=== PATIENT | male | born 1980 | race Caucasian/White ===

== ENCOUNTER → 2017-04-03 | Outpatient (CLI) | payer OTHER ==
[~2017-04-03] MED LIST: /LAMO10TA OR; /QUET10TA OR; AMBI10TA OR; AMBI10TA PO; AUGM875T27 PO; BUPRPOW2 SL; COGE1INJ PO; COLA100C2 OR; GABA-282 PO; GEOD60CA OR; NEUR300C OR; OMEP20CA3 PO; PREG100CA OR; SERO200T OR; SUBO8MIS SL; TYLE325T5 PO
[2017-04-03 17:49] LABS: BASO % 0.4 % (0.0-1.0); EOS # 0.1 K/mm3 (0.0-0.50); EOS % 1.8 % (0.0-3.0); LARGE UNSTAINED CELL # 0.1 K/mm3 (0.0-0.4); LARGE UNSTAINED CELL % 1.8 % (0.0-4.0); LYMPH # 1.8 K/mm3 (1.5-4.5); LYMPH % 25.8 % (24.0-44.0); MEAN CORPUSCULAR HEMOGLOBIN 31.2 pg (27.0-33.0); MEAN CORPUSCULAR HGB CONC 33.5 g/dl (32.0-36.5); MEAN CORPUSCULAR VOLUME 93.3 fl (80.0-96.0); MONO # 0.3 K/mm3 (0.0-0.8); MONO % 4.5 % (0.0-5.0); NEUTROPHILS # 4.5 K/mm3 (1.8-7.7); NEUTROPHILS % 65.6 % (36.0-66.0); PLATELET COUNT, AUTOMATED 267 k/mm3 (150-450); RED CELL DISTRIBUTION WIDTH 12.6 % (11.5-14.5); WHITE BLOOD COUNT 6.8 K/mm3 (4.0-10.0)
[2017-04-03 18:25] LABS: ALBUMIN/GLOBULIN RATIO 1.05 (1.00-1.93); ALKALINE PHOSPHATASE 103 U/L (45-117); ALT/SGPT 20 U/L (12-78); ANION GAP 8 MEQ/L (8-16); AST/SGOT 12 U/L (15-37); BILIRUBIN,TOTAL 0.6 MG/DL (0.2-1.0); BLOOD UREA NITROGEN 16 MG/DL (7-18); CALCIUM LEVEL 9.8 MG/DL (8.5-10.1); CARBON DIOXIDE LEVEL 28 MEQ/L (21-32); CHLORIDE LEVEL 106 MEQ/L (98-107); CREATININE FOR GFR 1.18 MG/DL (0.70-1.30); GLOMERULAR FILTRATION RATE > 60.0 (>60); GLUCOSE, FASTING 79 MG/DL (70-105); SODIUM LEVEL 142 MEQ/L (136-145); TOTAL PROTEIN 7.8 GM/DL (6.4-8.2)
[2017-04-03 18:26] LABS: POTASSIUM SERUM 5.5 MEQ/L (3.5-5.1)
--- NOTE | 2017-04-04 00:10 | ECGEPIP ---
Stationary ECG Study [facility] Test Date: 2017-04-03 Pat Name: YASMANI AMBRIZ Department: OP Room: - Gender: M Events Associate: : 1980 Requested By: Vadim Petersen Order Number: [id number] Reading MD: Kana Escalante Measurements Intervals [place] Rate: 71 P: 58 WV: 150 QRS: 61 QRSD: 101 T: 38 QT: 346 QTc: 377 Interpretive Statements SINUS RHYTHM NO PRIOR TRACING Electronically Signed On 04-04-2017 0:10:11 EDT by Kana Escalante
== END ==
LOC: M LAB 16:12
PROVIDERS: ATTEND Family Medicine
DX: F11.20 Opioid dependence, uncomplicated (principal)

== ENCOUNTER → 2017-10-27 | Outpatient (CLI) | payer OTHER ==
[~2017-10-27] MED LIST changes: -AUGM875T27 PO; +AUGM875T28 PO
== END ==
LOC: M LAB 15:30
PROVIDERS: ATTEND Family Medicine
DX: F11.20 Opioid dependence, uncomplicated (principal)

== ENCOUNTER 2017-12-14 15:00 | Emergency (ER) | payer OTHER ==
[2017-12-14] MEDS: ONDANSETRON 4MG/2ML VIAL (J2405) IV (17:31)
[2017-12-14] MEDS: KETOROLAC 30 MG/ML VIAL (J1885) IV (17:31)
[2017-12-14] MEDS: NS 1,000 ML IV (17:31)
[2017-12-14] MEDS: GASTROGRAFIN SOLUTION 30ML PO (17:40)
[2017-12-14 17:44] LABS: BASO # 0.1 10^3/uL (0.0-0.2); BASO % 0.5 % (0.0-1.0); EOS # 0.4 10^3/uL (0.0-0.50); EOS % 3.8 % (0.0-3.0); HEMATOCRIT 47.4 % (42.0-52.0); HEMOGLOBIN 16.2 g/dl (14.0-18.0); IMMATURE GRANULOCYTE % 0.2 % (0-0); LYMPH # 2.6 10^3/uL (1.5-4.5); LYMPH % 26.3 % (24.0-44.0); MEAN CORPUSCULAR HEMOGLOBIN 31.1 pg (27.0-33.0); MEAN CORPUSCULAR HGB CONC 34.2 g/dl (32.0-36.5); MONO # 0.5 10^3/uL (0.0-0.8); NEUTROPHILS # 6.4 10^3/uL (1.8-7.7); NEUTROPHILS % 64.2 % (36.0-66.0); PLATELET COUNT, AUTOMATED 258 10^3/uL (150-450); RED BLOOD COUNT 5.21 10^6/uL (4.30-6.10); RED CELL DISTRIBUTION WIDTH 12.3 % (11.5-14.5); WHITE BLOOD COUNT 9.9 10^3/uL (4.0-10.0)
[2017-12-14 17:47] LABS: KETONE, URINE AUTO RFX TRACE mg/dL (NEGATIVE); LEUKOCYTE ESTERASE UR AUTO RFX NEGATIVE (NEGATIVE); MUCUS, URINE RFX SMALL (NEGATIVE); NITRITE, URINE AUTO RFX NEGATIVE (NEGATIVE); RBC, URINE AUTO RFX 0 /HPF (0-3); SPECIFIC GRAVITY UR AUTO RFX 1.023 (1.002-1.035); SQUAM EPITHELIAL CELL UR AURFX 0 /HPF (0-6); WBC, URINE AUTO RFX 0 /HPF (0-3)
[2017-12-14 18:09] LABS: ALBUMIN 4.3 GM/DL (3.2-5.2); ALBUMIN/GLOBULIN RATIO 1.05 (1.00-1.93); ALKALINE PHOSPHATASE 82 U/L (45-117); ALT/SGPT 19 U/L (12-78); ANION GAP 5 MEQ/L (8-16); AST/SGOT 23 U/L (7-37); BILIRUBIN,DIRECT < 0.1 MG/DL (0.0-0.2); BILIRUBIN,TOTAL 0.6 MG/DL (0.2-1.0); BLOOD UREA NITROGEN 16 MG/DL (7-18); CALCIUM LEVEL 9.4 MG/DL (8.5-10.1); CARBON DIOXIDE LEVEL 26 MEQ/L (21-32); CHLORIDE LEVEL 106 MEQ/L (98-107); CREATININE FOR GFR 1.03 MG/DL (0.70-1.30); GLOMERULAR FILTRATION RATE > 60.0 (>60); GLUCOSE, FASTING 80 MG/DL (70-105); LIPASE 82 U/L (73-393); POTASSIUM SERUM 4.2 MEQ/L (3.5-5.1); SODIUM LEVEL 137 MEQ/L (136-145); TOTAL PROTEIN 8.4 GM/DL (6.4-8.2)
[2017-12-14] MEDS: GASTROGRAFIN SOLUTION 30ML (Q9963) PO (18:10)
[2017-12-14] MEDS ORDERED: ISOVUE-370 76% 100ML VIAL (Q9967) As Ordered (19:08)
== END 2017-12-14 20:27 | disposition home or self-care (01) ==
LOC: M ED 15:00
DX: R10.32 Left lower quadrant pain (principal); R11.2 Nausea with vomiting, unspecified; R19.7 Diarrhea, unspecified; F31.9 Bipolar disorder, unspecified; F43.10 Post-traumatic stress disorder, unspecified; F19.10 Other psychoactive substance abuse, uncomplicated; Z79.899 Other long term (current) drug therapy; F12.20 Cannabis dependence, uncomplicated; F17.210 Nicotine dependence, cigarettes, uncomplicated
CPT/HCPCS: Q9963

== ENCOUNTER 2017-12-20 14:16 | Emergency (ER) | payer OTHER ==
[2017-12-20 16:02] LABS: ESTIMATED AVERAGE GLUCOSE 105 MG/DL (60-110); HEMOGLOBIN A1c 5.3 %
[2017-12-20 16:16] LABS: CHOLESTEROL LEVEL 164 MG/DL (<200); CHOLESTEROL RISK RATIO 3.813 (<5); HDL CHOLESTEROL 43 MG/DL (>40); LDL CHOLESTEROL 79.4 MG/DL (<100); NON-HDL-C 121 MG/DL; TRIGLYCERIDES LEVEL 208 MG/DL (<150)
[2017-12-21 11:17] LABS: VITAMIN B12 LEVEL 385 PG/ML (247-911)
[2017-12-24 00:06] LABS: VITAMIN D 1,25 DIHYDROXY 33.7 pg/mL (19.9-79.3)
== END 2017-12-20 15:58 | disposition home or self-care (01) ==
LOC: M ED 14:16
DX: R21 Rash and other nonspecific skin eruption (principal); B19.20 Unspecified viral hepatitis C without hepatic coma; K21.9 Gastro-esophageal reflux disease without esophagitis; F99 Mental disorder, not otherwise specified; F17.200 Nicotine dependence, unspecified, uncomplicated; Z79.899 Other long term (current) drug therapy
CPT/HCPCS: 84443

== ENCOUNTER → 2017-12-25 | Outpatient (REF) | payer OTHER ==
[2017-12-25 12:40] LABS: BASO # 0.1 10^3/uL (0.0-0.2); BASO % 0.7 % (0.0-1.0); EOS # 0.4 10^3/uL (0.0-0.50); EOS % 5.8 % (0.0-3.0); HEMATOCRIT 41.7 % (42.0-52.0); HEMOGLOBIN 13.9 g/dl (14.0-18.0); IMMATURE GRANULOCYTE % 0.3 % (0-0); LYMPH # 1.8 10^3/uL (1.5-4.5); LYMPH % 26.8 % (24.0-44.0); MEAN CORPUSCULAR HEMOGLOBIN 30.2 pg (27.0-33.0); MEAN CORPUSCULAR HGB CONC 33.3 g/dl (32.0-36.5); MEAN CORPUSCULAR VOLUME 90.5 fl (80.0-96.0); MONO # 0.4 10^3/uL (0.0-0.8); MONO % 6.4 % (0.0-5.0); PLATELET COUNT, AUTOMATED 271 10^3/uL (150-450); RED BLOOD COUNT 4.61 10^6/uL (4.30-6.10); RED CELL DISTRIBUTION WIDTH 12.4 % (11.5-14.5); WHITE BLOOD COUNT 6.7 10^3/uL (4.0-10.0)
[2017-12-25 13:12] LABS: HEPATITIS B SURFACE ANTIBODY NEGATIVE (POSITIVE)
[2017-12-25 13:18] LABS: ALBUMIN 3.6 GM/DL (3.2-5.2); ALBUMIN/GLOBULIN RATIO 1.03 (1.00-1.93); ALKALINE PHOSPHATASE 93 U/L (45-117); ALT/SGPT 19 U/L (12-78); ANION GAP 6 MEQ/L (8-16); AST/SGOT 14 U/L (7-37); BILIRUBIN,TOTAL 0.4 MG/DL (0.2-1.0); BLOOD UREA NITROGEN 14 MG/DL (7-18); CALCIUM LEVEL 9.3 MG/DL (8.5-10.1); CARBON DIOXIDE LEVEL 30 MEQ/L (21-32); CHLORIDE LEVEL 104 MEQ/L (98-107); CREATININE FOR GFR 0.89 MG/DL (0.70-1.30); GLOMERULAR FILTRATION RATE > 60.0 (>60); GLUCOSE, FASTING 85 MG/DL (70-100); POTASSIUM SERUM 4.7 MEQ/L (3.5-5.1); SODIUM LEVEL 140 MEQ/L (136-145); TOTAL PROTEIN 7.1 GM/DL (6.4-8.2)
[2017-12-25 13:23] LABS: HEPATITIS B SURFACE ANTIGEN NEGATIVE (NEGATIVE)
[2017-12-25 14:10] LABS: HEPATITIS C VIRUS ABY INDEX > 11.0 INDEX (<0.8)
[2017-12-28 08:06] LABS: HCV RNA NAA QUALITATIVE Negative (Negative)
[2017-12-29 08:06] LABS: ALPHA 2-MACROGLOBULIN 207 mg/dL (110-276); ALT 14 IU/L (0-55); APOLIPOPROTEIN A-1 128 mg/dL (101-178); FIBROSIS SCORE 0.08 (0.00-0.21); GGT 14 IU/L (0-65); HAPTOGLOBIN 139 mg/dL (34-200); HEPATITIS A IgG TOTAL Negative (Negative); NECROINFLAM SCORE 0.03 (0.00-0.17); NECROINFLAMM GRADE A0-No activity (.); TISSUE TRANSGLUTAMINASE IgA <2 U/mL (0-3); TOTAL BILIRUBIN 0.2 mg/dL (0.0-1.2)
[2017-12-30 00:06] LABS: HEPATITIS C QUANTITATION HCV Not Detected IU/mL (.)
== END ==
LOC: M SFHCPLAZ 10:06
DX: B19.20 Unspecified viral hepatitis C without hepatic coma (principal); K21.9 Gastro-esophageal reflux disease without esophagitis; R19.7 Diarrhea, unspecified; R94.6 Abnormal results of thyroid function studies
CPT/HCPCS: 83010

== ENCOUNTER → 2017-12-30 | Outpatient (REF) | payer OTHER ==
[2018-01-02 00:08] LABS: H PYLORI STOOL ANTIGEN Negative (Negative)
== END ==
LOC: M SFHCPLAZ 15:37
DX: K21.9 Gastro-esophageal reflux disease without esophagitis (principal); R19.7 Diarrhea, unspecified
CPT/HCPCS: 87338

== ENCOUNTER → 2018-02-01 | Outpatient (CLI) | payer OTHER | LOC: M LAB 11:01 | DX: M25.511 Pain in right shoulder (principal) | CPT/HCPCS: 73030 ==

== ENCOUNTER 2018-02-14 14:03 | Emergency (ER) | payer OTHER | END 2018-02-14 16:47 | disposition home or self-care (01) | LOC: M ED 14:03 | DX: S82.831A Other fracture of upper and lower end of right fibula, initial encounter for closed fracture (principal); S82.54XA Nondisplaced fracture of medial malleolus of right tibia, initial encounter for closed fracture; X50.1XXA Overexertion from prolonged static or awkward postures, initial encounter; Y92.9 Unspecified place or not applicable; Y93.9 Activity, unspecified; F17.200 Nicotine dependence, unspecified, uncomplicated; Z79.899 Other long term (current) drug therapy | CPT/HCPCS: 73610 ==

== ENCOUNTER 2018-02-26 15:41 | Day surgery (SDC) | payer OTHER ==
[2018-02-26] MEDS ORDERED: dexameTHASONE 10 MG/1 ML VIAL PRES.FREE (J1100) (15:42)
[2018-02-26] MEDS ORDERED: ROPIvacaine 0.5% 30 ML INJECTION (J2795 PER 1MG) (15:42)
[2018-02-26] MEDS: LR 1,000 ML IV ×3 (16:28→22:52)
[2018-02-26] MEDS ORDERED: MIDAZOLAM INJ 2 MG/2 ML VIAL (J2250) As Ordered (19:16)
[2018-02-26] MEDS ORDERED: fentaNYL 100 MCG/2 ML INJECTION (J3010) As Ordered (19:16)
[2018-02-26] MEDS: fentaNYL 100 MCG/2 ML INJECTION (J3010) IV ×2 (19:37→19:50)
[2018-02-26] MEDS: MIDAZOLAM INJ 2 MG/2 ML VIAL (J2250) IV ×2 (19:38→19:50)
[2018-02-26] MEDS ORDERED: LIDOCAINE 2% INJ 100 MG/5 ML SDV (FOR ANES.) As Ordered (19:49)
[2018-02-26] MEDS ORDERED: ROCURONIUM BROMIDE 50 MG/5 ML VIAL As Ordered (19:49)
[2018-02-26] MEDS ORDERED: PROPOFOL 200 MG/20 ML VIAL As Ordered (19:49)
[2018-02-26] MEDS ORDERED: dexameTHASONE 4 MG/ML 1ML VIAL (J1100) As Ordered (20:07)
[2018-02-26] MEDS ORDERED: METOCLOPRAMIDE INJ 10MG/2ML VIAL (J2765) As Ordered (20:29)
[2018-02-26] MEDS ORDERED: ONDANSETRON 4MG/2ML VIAL (J2405) As Ordered (20:32)
[2018-02-26] MEDS ORDERED: GLYCOPYRROLATE INJ 0.2 MG/ML 2 ML VIAL As Ordered (20:32)
[2018-02-26] MEDS ORDERED: ePHEDrine SULFATE 25 MG/5 ML(5MG/ML) SYRINGE As Ordered (20:33)
[2018-02-26] MEDS ORDERED: PHENYLephrine HCL 500 MCG/5 ML (100MCG/ML) SYRINGE (J2370) As Ordered (20:45)
[2018-02-26] MEDS: PERCOCET 5MG/325MG TAB PO (21:55)
[2018-02-26] MEDS ORDERED: traMADol 50 MG TAB PO (22:00)
[2018-02-26] MEDS ORDERED: FLEET ENEMA PR (22:00)
[2018-02-26] MEDS ORDERED: ONDANSETRON 4MG/2ML VIAL (J2405) IV (22:00)
[2018-02-26] MEDS ORDERED: fentaNYL 100 MCG/2 ML INJECTION (J3010) IV (22:00)
[2018-02-26] MEDS: ACETAMINOPHEN 500 MG TAB PO (22:52)
[2018-02-27] MEDS: ACETAMINOPHEN 500 MG TAB PO (05:06)
[2018-02-27] MEDS: VITAMIN D (CHOLECALCIFEROL) 400 INTERNATIONAL UNITS TAB PO (08:52)
[2018-02-27] MEDS: ASPIRIN 81 MG CHEW TABLET PO (08:52)
[2018-02-27] MEDS: METHADONE 10 MG TAB (S0109) PO (08:53)
== END 2018-02-27 11:40 | disposition home or self-care (01) ==
LOC: M SDC 15:41 → M MS5PR 22:35
DX: S93.431A Sprain of tibiofibular ligament of right ankle, initial encounter (principal); X58.XXXA Exposure to other specified factors, initial encounter; Y93.89 Activity, other specified; Y92.89 Other specified places as the place of occurrence of the external cause; Y99.8 Other external cause status; Z91.19 Patient's noncompliance with other medical treatment and regimen; I10 Essential (primary) hypertension; E78.1 Pure hyperglyceridemia; K52.9 Noninfective gastroenteritis and colitis, unspecified; R13.10 Dysphagia, unspecified; K62.5 Hemorrhage of anus and rectum; K59.00 Constipation, unspecified; K21.9 Gastro-esophageal reflux disease without esophagitis; R11.10 Vomiting, unspecified; B19.20 Unspecified viral hepatitis C without hepatic coma; F41.9 Anxiety disorder, unspecified; F31.9 Bipolar disorder, unspecified; F12.90 Cannabis use, unspecified, uncomplicated; Z72.0 Tobacco use; Z79.899 Other long term (current) drug therapy; Z79.891 Long term (current) use of opiate analgesic; Z87.828 Personal history of other (healed) physical injury and trauma; Z86.59 Personal history of other mental and behavioral disorders
CPT/HCPCS: 27829

== ENCOUNTER → 2018-04-07 | Outpatient (CLI) | payer OTHER ==
[2018-04-07 15:30] LABS: HEMATOCRIT 44.2 % (42.0-52.0); HEMOGLOBIN 14.8 g/dl (13.5-17.5); MEAN CORPUSCULAR HEMOGLOBIN 30.6 pg (27.0-33.0); MEAN CORPUSCULAR HGB CONC 33.5 g/dl (32.0-36.5); MEAN CORPUSCULAR VOLUME 91.3 fl (80.0-96.0); PLATELET COUNT, AUTOMATED 296 10^3/uL (150-450); RED BLOOD COUNT 4.84 10^6/uL (4.30-6.10); RED CELL DISTRIBUTION WIDTH 12.9 % (11.5-14.5); WHITE BLOOD COUNT 8.1 10^3/uL (4.0-10.0)
[2018-04-07 15:49] LABS: ALBUMIN 4.4 GM/DL (3.2-5.2); ALBUMIN/GLOBULIN RATIO 1.19 (1.00-1.93); ALKALINE PHOSPHATASE 89 U/L (45-117); ALT/SGPT 20 U/L (12-78); ANION GAP 4 MEQ/L (8-16); AST/SGOT 13 U/L (7-37); BILIRUBIN,TOTAL 0.7 MG/DL (0.2-1.0); BLOOD UREA NITROGEN 23 MG/DL (7-18); CALCIUM LEVEL 9.7 MG/DL (8.5-10.1); CARBON DIOXIDE LEVEL 29 MEQ/L (21-32); CHLORIDE LEVEL 108 MEQ/L (98-107); CREATININE FOR GFR 1.08 MG/DL (0.70-1.30); GLOMERULAR FILTRATION RATE > 60.0 (>60); GLUCOSE, FASTING 82 MG/DL (70-100); POTASSIUM SERUM 4.8 MEQ/L (3.5-5.1); SODIUM LEVEL 141 MEQ/L (136-145); TOTAL PROTEIN 8.1 GM/DL (6.4-8.2)
[2018-04-07 16:58] LABS: CHLAMYDIA DNA AMPLIFICATION NEGATIVE (NEGATIVE); GC DNA AMPLIFICATION NEGATIVE (NEGATIVE)
[2018-04-09 10:06] LABS: HEPATITIS B SURFACE ANTIGEN NEGATIVE (NEGATIVE)
[2018-04-09 10:26] LABS: HIV 1&2 SCREEN CENTAUR NEGATIVE (NEGATIVE)
[2018-04-09 10:34] LABS: HEPATITIS C VIRUS ABY INDEX > 11.0 INDEX (<0.8)
[2018-04-13 00:07] LABS: HCV RNA NAA QUALITATIVE Negative (Negative)
== END ==
LOC: M LAB 15:02
DX: F11.20 Opioid dependence, uncomplicated (principal)
CPT/HCPCS: 80053

== ENCOUNTER → 2018-04-09 | Outpatient (CLI) | payer OTHER | LOC: M LAB 12:55 | DX: R94.6 Abnormal results of thyroid function studies (principal) | CPT/HCPCS: 84443 ==

== ENCOUNTER → 2018-04-09 | Outpatient (CLI) | payer OTHER | LOC: M EKG 13:05 | DX: F11.20 Opioid dependence, uncomplicated (principal) | CPT/HCPCS: 93005 ==

== ENCOUNTER 2018-04-23 07:09 | Day surgery (SDC) | payer OTHER ==
[~2018-04-23 07:09] MED LIST changes: -/LAMO10TA OR; -/QUET10TA OR; -AMBI10TA OR; -AMBI10TA PO; -AUGM875T28 PO; -BUPRPOW2 SL; -COGE1INJ PO; -COLA100C2 OR; -GABA-282 PO; -GEOD60CA OR; -NEUR300C OR; -OMEP20CA3 PO; -PREG100CA OR; +PROPOFOL 500 MG/50 ML VIAL As Ordered; -SERO200T OR; -SUBO8MIS SL; -TYLE325T5 PO; +fentaNYL 100 MCG/2 ML INJECTION (J3010) As Ordered
[2018-04-23] MEDS ORDERED: LIDOCAINE 2% INJ 100 MG/5 ML SDV (FOR ANES.) As Ordered (07:10)
[2018-04-23] MEDS ORDERED: CETACAINE SPRAY 5GM As Ordered (07:36)
[2018-04-23] MEDS: NS 1,000 ML IV (07:45)
== END 2018-04-23 09:34 | disposition home or self-care (01) ==
LOC: M OPP 07:09
DX: K64.8 Other hemorrhoids (principal); K52.9 Noninfective gastroenteritis and colitis, unspecified; K57.30 Diverticulosis of large intestine without perforation or abscess without bleeding; K63.5 Polyp of colon; K21.0 Gastro-esophageal reflux disease with esophagitis; K29.70 Gastritis, unspecified, without bleeding; I10 Essential (primary) hypertension; R79.89 Other specified abnormal findings of blood chemistry; F31.9 Bipolar disorder, unspecified; F41.9 Anxiety disorder, unspecified; B17.10 Acute hepatitis C without hepatic coma; G47.00 Insomnia, unspecified; Z79.82 Long term (current) use of aspirin; Z79.899 Other long term (current) drug therapy; Z86.59 Personal history of other mental and behavioral disorders; Z96.9 Presence of functional implant, unspecified; Z82.49 Family history of ischemic heart disease and other diseases of the circulatory system; Z86.79 Personal history of other diseases of the circulatory system; Z80.9 Family history of malignant neoplasm, unspecified
CPT/HCPCS: 45380

== ENCOUNTER → 2018-04-27 | Outpatient (REF) | LOC: M SMT 12:01 | DX: M54.5 Low back pain (principal) ==

== ENCOUNTER → 2018-05-17 | Outpatient (REF) | payer OTHER | LOC: M SFHCPLAZ 16:44 | DX: E03.9 Hypothyroidism, unspecified (principal) ==

== ENCOUNTER → 2018-06-09 | Outpatient (REF) | payer OTHER | LOC: M SFHCPLAZ 15:17 | DX: L73.8 Other specified follicular disorders (principal) | CPT/HCPCS: 87186 ==

== ENCOUNTER → 2019-05-10 | Outpatient (REF) | payer OTHER ==
[~2019-05-10] MED LIST changes: +AMBI10TA OR; +AMBI10TA PO; +ASPI1CHW2 PO; +AUGM875T28 PO; +BUPRPOW2 SL; +COGE1INJ PO; +COLA100C2 OR; +COLA100C5 PO; +GABA-843 PO; +GEOD60CA OR; +HYDR1OIN23 EX; +IBUP80TA PO; +LAMI1TAB7 OR; +METH40TA PO; +NEUR300C OR; +NEUR300C PO; +OMEP20CA3 PO; +OMEP20TA PO; +PANT40TA3 PO; +PREG100CA OR; -PROPOFOL 500 MG/50 ML VIAL As Ordered; +SENN8.6C PO; +SERO1TAB OR; +SERO200T OR; +SERO50TA PO; +SUBO8MIS SL; +TRAM50TA2 PO; +TYLE325T5 PO; +TYLE500T78 PO; +WELLTAB38 PO; -fentaNYL 100 MCG/2 ML INJECTION (J3010) As Ordered
[2019-05-10 18:23] LABS: BASO % 0.4 % (0.0-1.0); EOS # 0.2 10^3/uL (0.0-0.50); EOS % 3.6 % (0.0-3.0); HEMATOCRIT 45.7 % (42.0-52.0); HEMOGLOBIN 14.5 g/dl (13.5-17.5); LYMPH # 1.5 10^3/uL (1.5-4.5); LYMPH % 33.2 % (24.0-44.0); MEAN CORPUSCULAR HEMOGLOBIN 27.3 pg (27.0-33.0); MEAN CORPUSCULAR HGB CONC 31.7 g/dl (32.0-36.5); MEAN CORPUSCULAR VOLUME 85.9 fl (80.0-96.0); MONO # 0.3 10^3/uL (0.0-0.8); MONO % 7.1 % (0.0-5.0); NEUTROPHILS # 2.5 10^3/uL (1.8-7.7); NEUTROPHILS % 55.5 % (36.0-66.0); PLATELET COUNT, AUTOMATED 260 10^3/uL (150-450); RED BLOOD COUNT 5.32 10^6/uL (4.30-6.10); WHITE BLOOD COUNT 4.5 10^3/uL (4.0-10.0)
[2019-05-10 18:35] LABS: ALBUMIN 3.7 GM/DL (3.2-5.2); ALT/SGPT 24 U/L (12-78); BILIRUBIN,TOTAL 0.6 MG/DL (0.2-1.0); BLOOD UREA NITROGEN 15 MG/DL (7-18); CALCIUM LEVEL 9.8 MG/DL (8.5-10.1); CARBON DIOXIDE LEVEL 26 MEQ/L (21-32); CHLORIDE LEVEL 107 MEQ/L (98-107); CHOLESTEROL LEVEL 188 MG/DL (<200); CHOLESTEROL RISK RATIO 5.371 (<5); CREATININE FOR GFR 0.76 MG/DL (0.70-1.30); FREE T4 0.77 NG/DL (0.76-1.46); GLOMERULAR FILTRATION RATE > 60.0 (>60); GLUCOSE, FASTING 95 MG/DL (70-100); HDL CHOLESTEROL 35 MG/DL (>40); LDL CHOLESTEROL 101 MG/DL (<100); NON-HDL-C 153 MG/DL; POTASSIUM SERUM 4.2 MEQ/L (3.5-5.1); SODIUM LEVEL 140 MEQ/L (136-145); TOTAL PROTEIN 7.2 GM/DL (6.4-8.2); TRIGLYCERIDES LEVEL 259 MG/DL (<150)
[2019-05-10 18:36] LABS: TOTAL 25(OH) VITAMIN D 20.4 NG/ML (30.0-100.0)
[2019-05-10 19:00] LABS: HEMOGLOBIN A1c 5.2 %
[2019-05-13 00:08] LABS: Lyme Disease IgG/IgM Antibodie <0.91 ISR (0.00-0.90); Lyme Disease IgM Ab Quantitati <0.80 index (0.00-0.79)
== END ==
LOC: M LAB REF 16:55
PROVIDERS: ATTEND Family Medicine
DX: Z13.228 Encounter for screening for other metabolic disorders (principal)

== ENCOUNTER → 2019-06-14 | Outpatient (REF) ==
[~2019-06-14] MED LIST changes: -OMEP20CA3 PO; +OMEP20CA4 PO
--- NOTE | 2019-06-14 12:33 | REP ---
Right tibia-fibula four views: There are no comparisons. There is internal fixation of the tibia with an intramedullary ignacio and cortical compression plates there is a cortical compression plate of the distal fibula. The fractures are in hardware are in satisfactory positions alignment. Old screw tracts are identified in the cortex of the mid tibia. There is a nondisplaced fracture of the proximal fibular shaft. There are no lytic, blastic or destructive skeletal changes. There is a fracture at the midshaft of the tibia is healed with fibrous union. Electronically Signed by Vadim Fitch MD 06/14/2019 12:24 P
== END ==
LOC: M SMT 11:01
PROVIDERS: ATTEND Internal Medicine
DX: S82.401A Unspecified fracture of shaft of right fibula, initial encounter for closed fracture (principal); Z87.39 Personal history of other diseases of the musculoskeletal system and connective tissue

== ENCOUNTER → 2019-10-26 | Outpatient (CLI) | payer OTHER ==
[~2019-10-26] MED LIST changes: +OMEP-358 PO; -OMEP20TA PO
[2019-10-26 10:40] LABS: FREE T4 1.16 NG/DL (0.76-1.46); THYROID STIMULATING HORMONE 2.38 uIU/ML (0.358-3.740)
[2019-10-26 10:41] LABS: CORTISOL AM 14.6 UG/DL (4.3-22.4); FOLLICLE STIMULATING HORMONE 3.7 mIU/mL (1.4-18.1); LUTEINIZING HORMONE 2.6 mIU/mL (1.5-9.3)
[2019-10-29 00:07] LABS: TESTOSTERONE FREE (DIRECT) 9.3 pg/mL (8.7-25.1)
== END ==
LOC: M LAB 08:54
PROVIDERS: ATTEND Physical Medicine & Rehabilitation
DX: S06.6X9S Traumatic subarachnoid hemorrhage with loss of consciousness of unspecified duration, sequela (principal); X58.XXXA Exposure to other specified factors, initial encounter

== ENCOUNTER 2019-11-22 13:30 | Emergency (ER) | payer OTHER ==
[~2019-11-22] VITALS: Ht 170.2 cm; Wt 93.2 kg
[~2019-11-22 13:30] MED LIST changes: +OMEP-172 PO; -OMEP20CA4 PO
[2019-11-22] MEDS ORDERED: TRAZ-252 (13:58)
[2019-11-22] MEDS ORDERED: AMAN100T (13:58)
[2019-11-22] MEDS ORDERED: LISI40TA (13:58)
[2019-11-22] MEDS ORDERED: BUPR1TAB52 (13:58)
[2019-11-22] MEDS ORDERED: ACET1TAB55 (13:58)
[2019-11-22] MEDS ORDERED: PROP10TA56 (13:58)
[2019-11-22] MEDS ORDERED: SENN-83 (13:58)
--- NOTE | 2019-11-22 14:05 | REP ---
Clinical: New onset seizures. Comparison: 02/16/2006. Findings: Evidence for prior right frontoparietal craniotomy with underlying elements of encephalomalacia involving the right parietotemporal region. Focal area of encephalomalacia also noted in the left frontal lobe. Findings are consistent with the given history of prior surgery for subdural hemorrhage. No acute intracranial hemorrhage or mass/mass effect. No acute extra-axial fluid collection. Sinuses and mastoid air cells are clear. Impression: Chronic and postsurgical changes. No evidence for acute intracranial pathology. Electronically Signed by Boby Schmitz MD 11/22/2019 01:56 P
[2019-11-22 15:14] LABS: BLOOD UREA NITROGEN 13 MG/DL (7-18); CALCIUM LEVEL 10.1 MG/DL (8.5-10.1); CARBON DIOXIDE LEVEL 30 MEQ/L (21-32); CHLORIDE LEVEL 104 MEQ/L (98-107); CREATININE FOR GFR 1.18 MG/DL (0.70-1.30); GLOMERULAR FILTRATION RATE > 60.0 (>60); GLUCOSE, FASTING 81 MG/DL (70-100); POTASSIUM SERUM 3.9 MEQ/L (3.5-5.1); SODIUM LEVEL 141 MEQ/L (136-145)
[2019-11-22 15:15] LABS: AMPHETAMINES LEVEL URINE NEGATIVE (NEGATIVE); BARBITURATES URINE NEGATIVE (NEGATIVE); BENZODIAZEPINES URINE NEGATIVE (NEGATIVE); CANNABINOIDS URINE POSITIVE (NEGATIVE); COCAINE METABOLITE URINE POSITIVE (NEGATIVE); METHADONE URINE NEGATIVE (NEGATIVE); OPIATES URINE NEGATIVE (NEGATIVE); PHENCYCLIDINE URINE NEGATIVE (NEGATIVE)
[2019-11-22 15:18] LABS: BASO % 0.5 % (0.0-1.0); EOS # 0.2 10^3/uL (0.0-0.5); HEMATOCRIT 53.4 % (42.0-52.0); HEMOGLOBIN 17.4 g/dl (13.5-17.5); LYMPH # 1.1 10^3/uL (1.5-5.0); LYMPH % 17.4 % (24.0-44.0); MEAN CORPUSCULAR HEMOGLOBIN 29.8 pg (27.0-33.0); MEAN CORPUSCULAR HGB CONC 32.6 g/dl (32.0-36.5); MEAN CORPUSCULAR VOLUME 91.6 fl (80.0-96.0); MONO # 0.5 10^3/uL (0.0-0.8); NEUTROPHILS # 4.7 10^3/uL (1.5-8.5); NEUTROPHILS % 71.8 % (36.0-66.0); PLATELET COUNT, AUTOMATED 263 10^3/uL (150-450); RED BLOOD COUNT 5.83 10^6/uL (4.30-6.10); WHITE BLOOD COUNT 6.6 10^3/uL (4.0-10.0)
[2019-11-22] MEDS ORDERED: KEPP1TAB2 PO (15:53)
[2019-11-22] MEDS ORDERED: levETIRAcetam INJection 1,000 MG in D5W 100 ML IV ONE (16:00)
[2019-11-22 16:46] VITALS: BP 151/90
== END 2019-11-22 17:06 | disposition home or self-care (01) ==
LOC: EDBD 13:30 → M ED 13:30
DX: G40.89 Other seizures (principal); F12.90 Cannabis use, unspecified, uncomplicated; F14.10 Cocaine abuse, uncomplicated; Z87.820 Personal history of traumatic brain injury; Z79.899 Other long term (current) drug therapy
CPT/HCPCS: 70450; 80048; 80307; 85025; 96365; 99284; J1953

== ENCOUNTER 2019-11-28 13:15 | Outpatient (RCR) | payer MEDICAID, OTHER ==
[~2019-11-28 13:15] MED LIST changes: +ACET1TAB55; +AMAN100T; +BUPR1TAB52; +KEPP1TAB2 PO; +LISI40TA; +PROP10TA56; +SENN-83; +TRAZ-252
== END 2019-11-29 | disposition home or self-care (01) ==
LOC: M PT 13:15
PROVIDERS: ATTEND Neurological Surgery
DX: Z98.890 Other specified postprocedural states (principal); S06.6X9D Traumatic subarachnoid hemorrhage with loss of consciousness of unspecified duration, subsequent encounter; S06.5X Traumatic subdural hemorrhage; X58.XXXD Exposure to other specified factors, subsequent encounter
CPT/HCPCS: 96125; 97110; 97112; 97116; 97161; 97165; G0515

== ENCOUNTER → 2019-12-30 | Outpatient (RCR) | payer OTHER ==
[~2019-12-30] MED LIST changes: -OMEP-172 PO; +OMEP1CAP73 PO
== END ==
LOC: M ST 12-20 10:31 → M PT 12-20 11:15 → M ST 12-22 10:09 → M PT 12-23 09:45 → M ST 12-28 11:12 → M PT 11:41
PROVIDERS: ATTEND Neurological Surgery
DX: Z98.890 Other specified postprocedural states (principal); S06.6X9D Traumatic subarachnoid hemorrhage with loss of consciousness of unspecified duration, subsequent encounter; S06.5X Traumatic subdural hemorrhage; X58.XXXD Exposure to other specified factors, subsequent encounter

== ENCOUNTER 2020-01-27 10:30 | Outpatient (RCR) | payer OTHER ==
[~2020-01-27 10:30] MED LIST changes: -ACET1TAB55; +ACET1TAB55 PO; -AMAN100T; +AMAN100T PO; -BUPR1TAB52; +BUPR1TAB52 PO; -LISI40TA; +LISI40TA PO; -PROP10TA56; +PROP10TA56 PO; -SENN-83; +SENN-83 PO; -TRAZ-252; +TRAZ-252 PO
== END 2020-01-28 | disposition home or self-care (01) ==
LOC: M PT 10:30
PROVIDERS: ATTEND Neurological Surgery
DX: Z98.890 Other specified postprocedural states (principal); S06.6X9D Traumatic subarachnoid hemorrhage with loss of consciousness of unspecified duration, subsequent encounter; S06.5X Traumatic subdural hemorrhage; X58.XXXD Exposure to other specified factors, subsequent encounter

== ENCOUNTER 2020-02-04 17:31 | Emergency (ER) | payer OTHER ==
[~2020-02-04] VITALS: Ht 170.2 cm; Wt 93.2 kg
[~2020-02-04 17:31] MED LIST changes: +ACET1TAB55; -ACET1TAB55 PO; +AMAN100T; -AMAN100T PO; +BUPR1TAB52; -BUPR1TAB52 PO; +LISI40TA; -LISI40TA PO; +PROP10TA56; -PROP10TA56 PO; +SENN-83; -SENN-83 PO; +TRAZ-252; -TRAZ-252 PO
[2020-02-04] MEDS ORDERED: levETIRAcetam INJection 1,000 MG in D5W 100 ML IV ONE (18:45)
[2020-02-04 20:08] LABS: AMPHETAMINES LEVEL URINE NEGATIVE (NEGATIVE); BARBITURATES URINE NEGATIVE (NEGATIVE); BENZODIAZEPINES URINE NEGATIVE (NEGATIVE); CANNABINOIDS URINE POSITIVE (NEGATIVE); COCAINE METABOLITE URINE NEGATIVE (NEGATIVE); METHADONE URINE NEGATIVE (NEGATIVE); OPIATES URINE NEGATIVE (NEGATIVE); PHENCYCLIDINE URINE NEGATIVE (NEGATIVE)
[2020-02-04 20:17] LABS: HEMATOCRIT 45.2 % (42.0-52.0); HEMOGLOBIN 15.2 g/dl (13.5-17.5); MEAN CORPUSCULAR HEMOGLOBIN 30.5 pg (27.0-33.0); MEAN CORPUSCULAR HGB CONC 33.6 g/dl (32.0-36.5); MEAN CORPUSCULAR VOLUME 90.6 fl (80.0-96.0); PLATELET COUNT, AUTOMATED 277 10^3/uL (150-450); RED BLOOD COUNT 4.99 10^6/uL (4.30-6.10); WHITE BLOOD COUNT 9.3 10^3/uL (4.0-10.0)
[2020-02-04 20:51] LABS: BLOOD UREA NITROGEN 15 MG/DL (7-18); CALCIUM LEVEL 9.3 MG/DL (8.5-10.1); CARBON DIOXIDE LEVEL 25 MEQ/L (21-32); CHLORIDE LEVEL 107 MEQ/L (98-107); GLOMERULAR FILTRATION RATE > 60.0 (>60); GLUCOSE, FASTING 92 MG/DL (70-100); POTASSIUM SERUM 3.9 MEQ/L (3.5-5.1); SODIUM LEVEL 139 MEQ/L (136-145)
[2020-02-04] MEDS ORDERED: KEPP1TAB2 PO (21:15)
[2020-02-04 21:41] VITALS: BP 132/98
== END 2020-02-04 21:42 | disposition home or self-care (01) ==
LOC: EDBD 17:31 → M ED 17:31 → EDSEX 17:31 → M ED 21:42
DX: R56.9 Unspecified convulsions (principal); Z87.820 Personal history of traumatic brain injury; I10 Essential (primary) hypertension; K21.9 Gastro-esophageal reflux disease without esophagitis; Z79.899 Other long term (current) drug therapy
CPT/HCPCS: 80048; 80307; 85027; 96365; 96366; 99284; J1953

== ENCOUNTER 2020-02-08 11:00 | Outpatient (RCR) | payer OTHER ==
[~2020-02-08 11:00] MED LIST changes: -ACET1TAB55; +ACET1TAB55 PO; -AMAN100T; +AMAN100T PO; -BUPR1TAB52; +BUPR1TAB52 PO; -LISI40TA; +LISI40TA PO; -PROP10TA56; +PROP10TA56 PO; -SENN-83; +SENN-83 PO; -TRAZ-252; +TRAZ-252 PO
[2020-02-09] MEDS ORDERED: LEVE750T5 PO (16:04)
[2020-02-14] MEDS ORDERED: BACI50OI TOP (10:22)
[2020-02-14] MEDS ORDERED: DOXY100T PO (10:22)
== END 2020-02-28 ==
LOC: M ST 11:00
PROVIDERS: ATTEND Neurological Surgery
DX: S06.6X9D Traumatic subarachnoid hemorrhage with loss of consciousness of unspecified duration, subsequent encounter (principal); S06.5X Traumatic subdural hemorrhage; X58.XXXD Exposure to other specified factors, subsequent encounter; Z98.890 Other specified postprocedural states

== ENCOUNTER 2020-02-09 10:47 | Inpatient (IN) | payer OTHER ==
[~2020-02-09] VITALS: Ht 170.2 cm; Wt 86.5 kg
[2020-02-09 12:08] LABS: HEMATOCRIT 46.2 % (42.0-52.0); HEMOGLOBIN 15.5 g/dl (13.5-17.5); MEAN CORPUSCULAR HEMOGLOBIN 30.6 pg (27.0-33.0); MEAN CORPUSCULAR HGB CONC 33.5 g/dl (32.0-36.5); MEAN CORPUSCULAR VOLUME 91.1 fl (80.0-96.0); PLATELET COUNT, AUTOMATED 334 10^3/uL (150-450); RED BLOOD COUNT 5.07 10^6/uL (4.30-6.10); WHITE BLOOD COUNT 18.7 10^3/uL (4.0-10.0)
[2020-02-09 12:39] LABS: AMPHETAMINES LEVEL URINE POSITIVE (NEGATIVE); BARBITURATES URINE NEGATIVE (NEGATIVE); BENZODIAZEPINES URINE NEGATIVE (NEGATIVE); CANNABINOIDS URINE POSITIVE (NEGATIVE); COCAINE METABOLITE URINE POSITIVE (NEGATIVE); METHADONE URINE NEGATIVE (NEGATIVE); OPIATES URINE POSITIVE (NEGATIVE); PHENCYCLIDINE URINE NEGATIVE (NEGATIVE)
[2020-02-09 12:52] LABS: ACETAMINOPHEN LEVEL < 2.0 UG/ML (10.0-30.0); ALBUMIN 3.7 GM/DL (3.2-5.2); ALT/SGPT 48 U/L (12-78); BILIRUBIN,DIRECT 0.5 MG/DL (0.0-0.2); BILIRUBIN,TOTAL 1.7 MG/DL (0.2-1.0); BLOOD UREA NITROGEN 21 MG/DL (7-18); CALCIUM LEVEL 9.9 MG/DL (8.5-10.1); CARBON DIOXIDE LEVEL 23 MEQ/L (21-32); CHLORIDE LEVEL 105 MEQ/L (98-107); CREATININE FOR GFR 0.92 MG/DL (0.70-1.30); ETHYL ALCOHOL (ETHANOL) < 0.003 % (0.000-0.010); GLOMERULAR FILTRATION RATE > 60.0 (>60); GLUCOSE, FASTING 91 MG/DL (70-100); POTASSIUM SERUM 3.8 MEQ/L (3.5-5.1); SALICYLATE LEVEL < 1.7 MG/DL (5.0-30.0); SODIUM LEVEL 139 MEQ/L (136-145); THYROID STIMULATING HORMONE 0.721 uIU/ML (0.358-3.740); TOTAL PROTEIN 7.4 GM/DL (6.4-8.2)
--- NOTE | 2020-02-09 13:39 | REP ---
CT BRAIN WITHOUT CONTRAST: HISTORY: Altered mental status. Comparison brain CT study November 22, 2019. CT FINDINGS: Preliminary digital patcher wood welder radiograph and bone window settings demonstrate that the patient is status post large right frontotemporal craniectomy with calvarial prosthesis placement. There is an underlying and fairly large area of right temporal lobe encephalomalacia. This is unchanged. There is another area of encephalomalacia in the left frontal lobe anteriorly which is also unchanged. There is no evidence of intracranial hemorrhage. No extra-axial fluid collection is seen. No mass or midline shift is observed. Findings are unchanged from the November 22, 2019 study. IMPRESSION: Large right frontotemporal craniectomy and calvarial prosthesis. Stable old areas of encephalomalacia right temporal lobe and left frontal lobe. No acute intracranial abnormality. Electronically Signed by Itz Nugent MD 02/09/2020 02:32 P
--- NOTE | 2020-02-09 13:41 | REP ---
Chest x-ray: Two views. History: fever . Comparison study: March 06, 2011 . Findings: The lungs are well inflated and free of infiltrate. The pleural angles are sharp. The heart size is normal. Pulmonary vasculature is not increased. No significant bony abnormality is seen. There is osteoarthritic sclerosis and spur formation in the right glenohumeral articulation. Impression: Negative chest x-ray. Electronically Signed by Itz Nugent MD 02/09/2020 01:33 P
[2020-02-09] MEDS ORDERED: LEVE750T5 PO (16:04)
[2020-02-09] MEDS ORDERED: VANCOMYCIN HCL 1,000 MG, VIAL MATE ADAPTER 1 EACH in D5W 250 ML IV SCH (16:15)
[2020-02-09] MEDS ORDERED: NS 1,000 ML IV ONE (16:15)
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
[2020-02-09] MEDS: OLANZapine INTRAMUSCULAR 10 MG VIAL (S0166) IM SCH ×2 (16:45→20:45)
[2020-02-09] MEDS ORDERED: OLANZapine INTRAMUSCULAR 10 MG VIAL (S0166) IM ONE (16:45)
[2020-02-09] MEDS ORDERED: BUPRENORPHINE/NALOXONE 8-2MG SUBLINGUAL TABLET(SUBOXONE) SL PRN (17:00)
[2020-02-09] MEDS ORDERED: VANCOMYCIN HCL 1,000 MG, VIAL MATE ADAPTER 1 EACH in D5W 250 ML IV ONE ×2 (17:00→18:00)
--- NOTE | 2020-02-09 17:05 | REP ---
Soft-tissue neck CT study without contrast: History: Rule out abscess. CT findings: The patient is status post right temporal frontal craniectomy. No intraorbital abnormality is seen. The parotid glands and submandibular glands are normal and symmetric. There is a diffuse moderate pattern of subcutaneous edema in the posterior neck muscles particularly on the left. There were to reactive lymph nodes in the posterior neck on the left. There is no evidence of abscess on this noncontrast CT study. The lung apices are clear. Impression: Inflammatory edema and skin thickening in the posterior neck soft tissues left greater than right. No abscess seen. Some reactive lymph nodes. Electronically Signed by Itz Nugent MD 02/09/2020 04:57 P
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
[2020-02-09] MEDS: diphenhydrAMINE INJ 50MG/ML VIAL (J1200) IV PRN (18:26)
[2020-02-09] MEDS: PIPERACILLIN/TAZOBACTAM SOD 3.375 GM in D5W MINI-BAG PLUS 50 ML IV SCH ×2 (18:29→22:00)
--- NOTE | 2020-02-09 18:51 | REPVR ---
PROCEDURE INFORMATION: Exam: US Right Non-Vascular Joint or Other Extremity Structure, Limited Upper Extremity Exam date and time: 02/09/2020 5:38 PM Age: 39 years old Clinical indication: Pain; Hand; Left; Additional info: Soft tissue of upper extremities. R/O abcesses, diffuse redness and swelling in upper extremities, talked to ordering provider to scan only anterior forearms/ elbows, notable area of redness/swelling. Lt dorsal hand swelling noted with patient complaint of pain to only the lt dorsal hand. Patient HX of iv drug use but states has only smoke marijuana. TECHNIQUE: Imaging protocol: Right US Non-Vascular Joint or Other Extremity Structure. Limited exam of the upper extremity. COMPARISON: No relevant prior studies available. FINDINGS: Soft tissues: Unremarkable. No loculated collections in the superficial and deep soft tissues of the right anterior forearm and in the soft tissues around the right elbow. Bones/joints: The right elbow joint appears grossly normal. IMPRESSION: Unremarkable ultrasound in the right anterior forearm and right elbow regions. No evidence of abscess or fluid collections in these right arm areas. PROCEDURE INFORMATION: Exam: US Left Non-Vascular Joint or Other Extremity Structure, Limited Upper Extremity Exam date and time: 02/09/2020 5:38 PM Age: 39 years old Clinical indication: Pain; Hand; Left; Additional info: Soft tissue of upper extremities. R/O abcesses, diffuse redness and swelling in upper extremities, talked to ordering provider to scan only anterior forearms/ elbows, notable area of redness/swelling. Lt dorsal hand swelling noted with patient complaint of pain to only the lt dorsal hand. Patient HX of iv drug use but states has only smoke marijuana. TECHNIQUE: Imaging protocol: Left US Non-Vascular Joint or Other Extremity Structure. Limited exam of the upper extremity. COMPARISON: No relevant prior studies available. FINDINGS: Soft tissues: No sonographic abnormality seen in the soft tissues of the left anterior forearm and left elbow region. There is diffuse soft tissue edema and cellulitis-like increased color Doppler vascularity present in the dorsum of the left hand in the area of most severe redness and pain as well as the soft tissues dorsal to the 4th and 5th metacarpophalangeal joints. Some small fluid collections are seen questionably within the extensor tendon sheaths overlying the dorsal left 4th and 5th metacarpophalangeal joints. Septic tenosynovitis could be present. Bones/joints: Unremarkable as visualized. IMPRESSION: 1. No sonographic abnormality seen in the soft tissues of the left anterior forearm and left elbow region. 2. There is diffuse soft tissue edema and cellulitis-like increased color Doppler vascularity present in the dorsum of the left hand in the area of most severe redness and pain as well as the soft tissues dorsal to the 4th and 5th metacarpophalangeal joints. Some small fluid collections are seen questionably within the extensor tendon sheaths overlying the dorsal left 4th and 5th metacarpophalangeal joints. Septic tenosynovitis affecting the 4th and 5th extensor tendons could be present. I would recommend an MRI with and without IV contrast of the left hand for further evaluation, if thought clinically necessary. Electronically signed by: Tommy Bryan On 02/09/2020 18:51:11 PM
[2020-02-09 18:53] LABS: INR 1.29; PROTHROMBIN TIME 15.8 SECONDS (11.8-14.0)
[2020-02-09 18:54] LABS: D-DIMER QUANT > 4000 ng/ml (<500); FIBRINOGEN 965 MG/DL (221-452)
--- NOTE | 2020-02-09 20:35 | PHACANCOPD ---
PHARMACY VANCOMYCIN DOSING Pt Demographics Demographics Patient Age:39 , Weight:95.450 , Gender: male Adjusted Body Weight Date: 02/09/20, Adjusted Body Weight: Kg Events Past 24 Hours Events Past 24 Hours: NO: Dialysis, Diuretic Therapy, Change in CrCl, Fever, Elevation in WBC, Pending Diagnostics, Pending Procedures, Other Vancomycin Vancomycin indication: Cellulitis Vancomycin Target Ranges: 15-20 mcg/ml Vancomycin Load Y/N: Yes Load Dose Date Time Vancomycin Load Dose: 2g Date: 02/09/20 Time: 1700 Vancomycin Dose Date: 02/09/20. Current Vancomycin Dose: [1.5g Q8H] Intermittent Dosing?: No Labs Labs Item Value Date Time White Blood Count 18.7 10^3/uL H 02/09/20 1141 Vital Signs Label Value Date Time Patient Temperature 97.3 degrees F 02/09/20 1110 Item Value Date Time Creatinine 0.92 MG/DL 02/09/20 1141 Glomerular Filtration Rate > 60.0 02/09/20 1141 Micro Microbiology 02/09/20 Blood Culture, Received Pending Creatinine Clearance Date:02/09/20. Creatinine Clearance: [121.1 mL/min]. Assessment and Plan Maintaining Current Dose?: Yes Reason for dose change: No Dose Change Pharmacist Note Pharmacist Note Date: 02/09/20. Pharmacist note: This is the second time we have treated this patient at our facility for cellulitis, likely due to his IV drug use. The patient presented with multiple areas of excoriations covering his bilateral arms and posterior neck as well as areas of erythema coinciding. The patient was afebrile on presentation with an elevation in his white blood cell count. SrCr= 0.92mg/ dL, CrCl= 121.1mL/min using Adjusted BW. A loading dose of 2g was initiated in the ED followed by a maintenance dose of 1.5G Q8H. The patient was on 1g Q8H in the past, however his therapy was discontinued the next day so it is unclear if that was an appropriate dose. We will continue to monitor and dose adjust as necessary. SRIDEVI ROONEY, PHARMACY Feb 09, 2020 20:35
[2020-02-09] MEDS: LORazepam 2 MG TAB PO PRN (21:24)
[2020-02-09 22:00] VITALS: BP 139/97
[2020-02-09] MEDS: PROPRANOLOL 10 MG TAB PO SCH (22:51)
[2020-02-09] MEDS: THIAMINE 100 MG TAB PO SCH (22:51)
[2020-02-09] MEDS: levETIRAcetam 250MG TABLET (KEPPRA) PO SCH (22:51)
[2020-02-10] MEDS: OLANZapine INTRAMUSCULAR 10 MG VIAL (S0166) IM SCH ×3 (00:45→08:45)
[2020-02-10] MEDS: PIPERACILLIN/TAZOBACTAM SOD 3.375 GM in D5W MINI-BAG PLUS 50 ML IV SCH ×4 (03:35→22:19)
[2020-02-10] MEDS: diphenhydrAMINE INJ 50MG/ML VIAL (J1200) IV PRN (04:44)
[2020-02-10 06:00] VITALS: BP 122/97
[2020-02-10 07:01] LABS: BASO # 0.1 10^3/uL (0.0-0.2); BASO % 0.3 % (0.0-1.0); EOS % 0.1 % (0.0-3.0); HEMATOCRIT 45.9 % (42.0-52.0); HEMOGLOBIN 15.6 g/dl (13.5-17.5); LYMPH # 1.3 10^3/uL (1.5-5.0); LYMPH % 6.9 % (24.0-44.0); MEAN CORPUSCULAR HEMOGLOBIN 31.5 pg (27.0-33.0); MEAN CORPUSCULAR VOLUME 92.5 fl (80.0-96.0); MONO % 11.2 % (0.0-5.0); NEUTROPHILS # 14.6 10^3/uL (1.5-8.5); NEUTROPHILS % 80.7 % (36.0-66.0); PLATELET COUNT, AUTOMATED 317 10^3/uL (150-450); RED BLOOD COUNT 4.96 10^6/uL (4.30-6.10); WHITE BLOOD COUNT 18.1 10^3/uL (4.0-10.0)
[2020-02-10 07:28] LABS: ALBUMIN 3.1 GM/DL (3.2-5.2); ALT/SGPT 45 U/L (12-78); BLOOD UREA NITROGEN 17 MG/DL (7-18); CALCIUM LEVEL 9.6 MG/DL (8.5-10.1); CARBON DIOXIDE LEVEL 27 MEQ/L (21-32); CHLORIDE LEVEL 104 MEQ/L (98-107); CREATININE FOR GFR 0.82 MG/DL (0.70-1.30); GLOMERULAR FILTRATION RATE > 60.0 (>60); GLUCOSE, FASTING 112 MG/DL (70-100); POTASSIUM SERUM 3.9 MEQ/L (3.5-5.1); SODIUM LEVEL 138 MEQ/L (136-145); TOTAL PROTEIN 6.9 GM/DL (6.4-8.2)
[2020-02-10] MEDS ORDERED: VANCOMYCIN HCL 750 MG, VIAL MATE ADAPTER 1 EACH in D5W 250 ML IV SCH ×2 (08:00→09:00)
[2020-02-10] MEDS: THIAMINE 100 MG TAB PO SCH ×2 (09:08→20:41)
[2020-02-10] MEDS: PROPRANOLOL 10 MG TAB PO SCH ×2 (09:08→20:42)
[2020-02-10] MEDS: lisinopriL 40 MG TAB PO SCH (09:08)
[2020-02-10] MEDS: levETIRAcetam 250MG TABLET (KEPPRA) PO SCH ×2 (09:08→20:42)
[2020-02-10] MEDS: FOLIC ACID 1 MG TAB PO SCH (09:08)
[2020-02-10] MEDS: MULTIVITAMINS/MINERALS THERAP 1 TAB PO SCH (09:08)
[2020-02-10 09:43] LABS: HEPATITIS A ANTIBODY IGM NEGATIVE (NEGATIVE); HEPATITIS B CORE ANTIBODY IGM NEGATIVE (NEGATIVE); HEPATITIS B SURFACE ANTIGEN NEGATIVE (NEGATIVE)
[2020-02-10 09:44] LABS: HEPATITIS C VIRUS ABY INDEX > 11.0 INDEX (<0.8)
[2020-02-10] MEDS: LORazepam 2 MG TAB PO PRN ×2 (11:20→20:42)
[2020-02-10 11:28] LABS: HIV 1&2 SCREEN CENTAUR NEGATIVE (NEGATIVE)
--- NOTE | 2020-02-10 12:09 | REPVR ---
PROCEDURE INFORMATION: Exam: CT Maxillofacial Without Contrast Exam date and time: 02/10/2020 10:01 AM Age: 39 years old Clinical indication: Mass, lump, or swelling; Other: Superior border marked with a beebee; Additional info: Right sided facial swelling TECHNIQUE: Imaging protocol: Computed tomography images of the face without contrast. Radiation optimization: All CT scans at this facility use at least one of these dose optimization techniques: automated exposure control; mA and/or kV adjustment per patient size (includes targeted exams where dose is matched to clinical indication); or iterative reconstruction. COMPARISON: No relevant prior studies available. FINDINGS: Orbits: Orbits are normal. Globes are unremarkable. Sinuses: Mild paranasal sinus mucosal thickening. Bones/joints: Partially imaged wide right craniectomy and cranioplasty. No acute maxillofacial fractures. Brain: Imaged brain shows areas of encephalomalacia and gliosis throughout the right temporal lobe with ex vacuo dilation of the right lateral ventricle. There is also gliosis in the left frontal lobe, partially imaged. Dental: A few scattered dental caries are present. No areas of cortical erosion. Soft tissues: BB marker overlies the right malar soft tissues. There is diffuse cellulitis throughout the right cheek with skin thickening, subcutaneous fat inflammation extending into the operational test mechanic space with myositis. There is no rim enhancing abscess or area of phlegmon. Inflammation extends into the right retroantral fat. The pterygopalatine fossa does not appear significantly effaced. There is also subcutaneous edema within in the left postauricular soft tissues extending throughout the neck. IMPRESSION: 1. Right facial cellulitis and myositis, with no drainable abscess. 2. There is also subcutaneous edema within in the left postauricular soft tissues extending inferiorly throughout the neck. Electronically signed by: Vicente Agarwal On 02/10/2020 12:09:15 PM
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
[2020-02-10 14:00] VITALS: BP 124/92
--- NOTE | 2020-02-10 14:00 | CR ---
DATE OF CONSULTATION: 02/10/2020 REASON FOR CONSULTATION: Left hand swelling and cellulitis HISTORY: This is a 39-year-old male patient who was admitted to the hospital with an elevated white blood cell (WBC) count and question of cellulitis with sepsis. Apparently a history of traumatic brain injury and his toxicology was positive for opiates, amphetamines, cocaine, and marijuana on presentation. We were called to see him today at his bedside. Very difficult to ascertain any history from the patient as apparently he was just given Ativan prior to the visit. He does respond though, only responds to he has to tell me about a traumatic brain injury a year ago. He denies any pain in his upper extremities, denies any pain in his lower extremities, and notes that he does have a history of traumatic brain injury. He repeats that throughout the exam. On attempted focus of his left hand, I did point to his left hand and asked him if hurt at all and he claimed no. He does not remember any particular injury to that hand. Denies any direct trauma to that hand. Denies prior troubles with that hand. Relatively difficult to get any further history from the patient. Medical history includes bipolar, history of IV drug use, history of positive methicillin-resistant Staphylococcus aureus (MRSA) in 2013, gastric reflux disease, seizure disorder, traumatic brain injury, substance abuse. Surgical history from the medical records notable for an arthroscopic shoulder surgery, cranioplasty, and apparently bilateral leg surgeries though he is unaware what that surgery was. Social history is consistent with polysubstance abuse. He denies smoking per the medical record. Denies alcohol use per the medical record. Family history unable to obtain as the patient is unable to answer further questions about his family history. Review of systems, again per the medical record, he denies any fevers or chills and denies any direct trauma to the hand or upper extremity. He does have a history of a traumatic injury over a year ago but denies any recent trauma and denies any pain in that hand. Denies any weakness. He does note he has had numerous bouts of cellulitis and numerous lesions throughout his upper and lower extremities. Exam today in the room reveals a patient that is somewhat confused by questioning though apparently he had just recently had Ativan. He does awaken for questions. He is not alert or oriented to his current location. He has been disheveled appearance. There are multiple skin lesions throughout his upper extremities to include his face. Particular attention to the left hand is notable for mild edema along the dorsum of the hand. There is mild erythema of the dorsal of the hand. No increased warmth to the touch. No streaking erythema. No sausage digits. No pain with passive range of motion of the fingers, wrist, elbow or shoulder on the left side. No irritability with range of motion of the right upper extremity. There is no discharge from his wounds in the upper extremities. There is brisk capillary refill at the fingertips. He is able to squeeze against my fingers. He is able to give the thumbs up sign. He is able to do the hook em sign. On exam today the forearm was soft, nontender to palpation and compartments of the forearm and arm are soft, nontender to palpation bilaterally. On exam, no pain with supination and pronation of the elbow. There is no tenderness along the flexor tendons no tenderness along the extensor tendons in the forearm or in the hand. No tenderness along the fourth or fifth compartments on examination today. There is symmetrical rise and fall of the chest with unlabored breathing. His mood and affect are flat. His laboratory data was reviewed and notable for a WBC count of 18.7 on 02/09/2020. Today it was 18.1. No C-reactive protein was available for review, but could be added to that would be a C-reactive protein and sed rate, could trend his WBC count and his inflammatory markers also to trend those labs to watch for progress would be another option as well and will defer that to his primary team, but again, from the surgical standpoint do not see any indication for surgery at this juncture. Impression is left hand cellulitis with no clear signs of flexor tenosynovitis or septic tenosynovitis on physical exam. Would recommend the MRI as previous discussed of his left hand as ordered by the radiologist. Recommended MRI of his hand with and without contrast, so when the patient is stable that would be further consideration for a MRI with and without contrast of the hand though at this juncture do not see any clear surgical indication and does not appear to be a toxic tenosynovitis that would require any operative management. I have recommended elevation, ice 20 minutes per hour when awake, though it may be difficult the patient is confused and may not be best to leave ice on him unless the patient is more aware at that juncture, but elevation would be important and at least on two or three pillow to elevate above the level of the heart and obtain the MRI. He could be reconsulted with us once the MRI has been completed, but at this point, no clear indications for surgery at this juncture. If his symptoms worsen, then we would be happy to see him at that juncture, but at this point, would have the MRI completed, contact us once the MRI has been completed. Thank you for this pleasant consult. BRENT
[2020-02-10] MEDS ORDERED: ACETAMINOPHEN TAB 650MG DOSE (2X325MG) PO PRN ×2 (14:30→16:15)
[2020-02-10] MEDS: VANCOMYCIN HCL 750 MG, VIAL MATE ADAPTER 1 EACH in D5W 250 ML IV SCH ×2 (16:18→17:27)
--- NOTE | 2020-02-10 19:06 | PHACANCOPD ---
PHARMACY VANCOMYCIN DOSING Pt Demographics Demographics Patient Age:39 , Weight:86.500 , Gender: male Adjusted Body Weight Date: 02/09/20, Adjusted Body Weight: Kg Vancomycin Vancomycin indication: Cellulitis Vancomycin Target Ranges: 15-20 mcg/ml Vancomycin Load Y/N: Yes Load Dose Date Time Vancomycin Load Dose: 2g Date: 02/09/20 Time: 1700 Vancomycin Dose Date: 02/09/20. Current Vancomycin Dose: [1.5g Q8H] Intermittent Dosing?: No Labs Micro Microbiology 02/10/20 Blood Culture, Received Pending 02/10/20 Wound Culture, Received Pending 02/09/20 Blood Culture - Preliminary, Resulted No growth after 24 hours . All specim... Creatinine Clearance Date:02/09/20. Creatinine Clearance: [121.1 mL/min]. Assessment and Plan Maintaining Current Dose?: No Reason for dose change: Trough too low Pharmacist Note Pharmacist Note Date: 02/10/20: Pharmacist note: Patient had a trough result at 6.1 mcg/dL today, well below the therapeutic range. The patient did not receive the morning dose of vancomycin today from a possible allergy. It was determined by the provider to not be an allergy and the subsequent dose was changed to 1.5 grams Q12H starting today at 1600. A second vancomycin trough was scheduled for 1500 tomorrow. We Will continue to monitor and make adjustments as needed. Date: 02/09/20. Pharmacist note: This is the second time we have treated this pa tient at our facility for cellulitis, likely due to his IV drug use. The patient presented with multiple areas of excoriations covering his bilateral arms and posterior neck as well as areas of erythema coinciding. The patient was afebrile on presentation with an elevation in his white blood cell count. SrCr= 0.92mg/ dL, CrCl= 121.1mL/min using Adjusted BW. A loading dose of 2g was initiated in the ED followed by a maintenance dose of 1.5G Q8H. The patient was on 1g Q8H in the past, however his therapy was discontinued the next day so it is unclear if that was an appropriate dose. We will continue to monitor and dose adjust as necessary. SRIDEVI TAM PHARMACY Feb 10, 2020 19:06
--- NOTE | 2020-02-10 19:40 | ECHO ---
DATE OF PROCEDURE: 02/10/2020 Date of : 1980 Age: 39 Gender: Male Height: 67 inches Weight: 209 pounds Body surface area: 2.06 meters squared Inpatient: [address] [place] [address], room 4215 REFERRING PHYSICIAN: Dr. Titi Reeder INDICATION: Sepsis - IV drug abuser. Hypertension. MEASUREMENTS: 2D Measurements: RV: 3.6 cm LV: 4.8 cm Septum: 1.0 cm Posterior wall: 1.0 cm Aortic root: 3.1 cm LA: 3.2 cm LVEF: 70% Doppler Measurements: AV: 0.9 meters per second LVOT: 0.8 meters per second LVOT diameter: 1.8 cm MV-E: 48, A: 46, EA ratio: 1.0 Early mitral deceleration time: 173 milliseconds E prime: 6.3, A prime: 8 PV: 0.7 meters per second Pulmonary artery acceleration time: 110 milliseconds RVSP: 31 mmHg IVC: 1.5 cm COMMENTS: Sinus tachycardia 100 beats per minute (bpm). No intraventricular conduction disturbance. Slightly challenging study in light of the patient's body habitus but diagnostically useful information was still obtained. M-mode and two-dimensional echocardiography was performed with pulsed, continuous wave, color flow and tissue Doppler studies. Normal left ventricular size, wall thickness and wall motion. Normal left atrial size and Doppler assessment of left ventricular (LV) diastolic function and estimated mean left atrial pressure. Normal right heart chamber sizes and wall motion with borderline pulmonary hypertension. Normal appearing and functioning valvular structures. Normal aortic dimensions. No apparent intracardiac mass or pericardial effusion. MTDD
[2020-02-10 22:00] VITALS: BP 130/92
[2020-02-11] MEDS: VANCOMYCIN HCL 750 MG, VIAL MATE ADAPTER 1 EACH in D5W 250 ML IV SCH ×4 (03:54→20:48)
[2020-02-11] MEDS: PIPERACILLIN/TAZOBACTAM SOD 3.375 GM in D5W MINI-BAG PLUS 50 ML IV SCH ×3 (05:16→19:35)
[2020-02-11 06:00] VITALS: BP 130/91
[2020-02-11 06:24] LABS: BASO # 0.1 10^3/uL (0.0-0.2); BASO % 0.3 % (0.0-1.0); EOS # 0.1 10^3/uL (0.0-0.5); EOS % 0.5 % (0.0-3.0); HEMATOCRIT 42.9 % (42.0-52.0); HEMOGLOBIN 14.4 g/dl (13.5-17.5); LYMPH # 1.5 10^3/uL (1.5-5.0); MEAN CORPUSCULAR HEMOGLOBIN 31.2 pg (27.0-33.0); MEAN CORPUSCULAR HGB CONC 33.6 g/dl (32.0-36.5); MEAN CORPUSCULAR VOLUME 92.9 fl (80.0-96.0); MONO # 1.7 10^3/uL (0.0-0.8); MONO % 11.4 % (0.0-5.0); NEUTROPHILS # 11.4 10^3/uL (1.5-8.5); NEUTROPHILS % 77.1 % (36.0-66.0); PLATELET COUNT, AUTOMATED 306 10^3/uL (150-450); RED BLOOD COUNT 4.62 10^6/uL (4.30-6.10); WHITE BLOOD COUNT 14.9 10^3/uL (4.0-10.0)
[2020-02-11 06:44] LABS: BLOOD UREA NITROGEN 22 MG/DL (7-18); CALCIUM LEVEL 9.1 MG/DL (8.5-10.1); CARBON DIOXIDE LEVEL 29 MEQ/L (21-32); CHLORIDE LEVEL 103 MEQ/L (98-107); CREATININE FOR GFR 1.03 MG/DL (0.70-1.30); GLOMERULAR FILTRATION RATE > 60.0 (>60); GLUCOSE, FASTING 117 MG/DL (70-100); POTASSIUM SERUM 3.2 MEQ/L (3.5-5.1); SODIUM LEVEL 137 MEQ/L (136-145)
[2020-02-11 06:45] LABS: ALBUMIN 2.7 GM/DL (3.2-5.2); ALT/SGPT 38 U/L (12-78); BILIRUBIN,TOTAL 1.4 MG/DL (0.2-1.0); TOTAL PROTEIN 7.5 GM/DL (6.4-8.2)
[2020-02-11] MEDS ORDERED: POTASSIUM CHLORIDE 10 MEQ SR TABLET PO ONE (08:00)
[2020-02-11] MEDS: THIAMINE 100 MG TAB PO SCH ×2 (09:43→20:25)
[2020-02-11] MEDS: LORazepam 2 MG TAB PO PRN ×2 (09:43→19:05)
[2020-02-11] MEDS: FOLIC ACID 1 MG TAB PO SCH (09:44)
[2020-02-11] MEDS: levETIRAcetam 250MG TABLET (KEPPRA) PO SCH ×2 (09:44→20:25)
[2020-02-11] MEDS: MULTIVITAMINS/MINERALS THERAP 1 TAB PO SCH (09:44)
[2020-02-11] MEDS: lisinopriL 40 MG TAB PO SCH (09:44)
[2020-02-11] MEDS: PROPRANOLOL 10 MG TAB PO SCH ×2 (09:44→20:24)
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
[2020-02-11 14:00] VITALS: BP 122/85
[2020-02-11 21:30] VITALS: BP 134/95
[2020-02-11 22:00] VITALS: BP 134/95
[2020-02-12 00:20] VITALS: BP 135/95
[2020-02-12] MEDS: PIPERACILLIN/TAZOBACTAM SOD 3.375 GM in D5W MINI-BAG PLUS 50 ML IV SCH ×3 (02:46→14:14)
[2020-02-12] MEDS: VANCOMYCIN HCL 750 MG, VIAL MATE ADAPTER 1 EACH in D5W 250 ML IV SCH ×3 (04:01→15:59)
[2020-02-12 06:00] VITALS: BP 148/86
[2020-02-12 06:33] LABS: BASO % 0.4 % (0.0-1.0); EOS # 0.1 10^3/uL (0.0-0.5); EOS % 0.7 % (0.0-3.0); HEMATOCRIT 40.1 % (42.0-52.0); HEMOGLOBIN 13.6 g/dl (13.5-17.5); LYMPH # 1.2 10^3/uL (1.5-5.0); LYMPH % 11.6 % (24.0-44.0); MEAN CORPUSCULAR HEMOGLOBIN 31.3 pg (27.0-33.0); MEAN CORPUSCULAR HGB CONC 33.9 g/dl (32.0-36.5); MEAN CORPUSCULAR VOLUME 92.4 fl (80.0-96.0); MONO # 1.3 10^3/uL (0.0-0.8); MONO % 11.7 % (0.0-5.0); NEUTROPHILS % 74.8 % (36.0-66.0); PLATELET COUNT, AUTOMATED 313 10^3/uL (150-450); RED BLOOD COUNT 4.34 10^6/uL (4.30-6.10); WHITE BLOOD COUNT 10.7 10^3/uL (4.0-10.0)
[2020-02-12 06:59] LABS: ALBUMIN 2.7 GM/DL (3.2-5.2); ALT/SGPT 48 U/L (12-78); BLOOD UREA NITROGEN 13 MG/DL (7-18); CALCIUM LEVEL 8.8 MG/DL (8.5-10.1); CARBON DIOXIDE LEVEL 27 MEQ/L (21-32); CHLORIDE LEVEL 102 MEQ/L (98-107); CREATININE FOR GFR 0.92 MG/DL (0.70-1.30); GLOMERULAR FILTRATION RATE > 60.0 (>60); GLUCOSE, FASTING 118 MG/DL (70-100); POTASSIUM SERUM 3.2 MEQ/L (3.5-5.1); SODIUM LEVEL 136 MEQ/L (136-145); TOTAL PROTEIN 7.4 GM/DL (6.4-8.2)
[2020-02-12] MEDS: levETIRAcetam 250MG TABLET (KEPPRA) PO SCH ×2 (08:55→20:42)
[2020-02-12] MEDS: MULTIVITAMINS/MINERALS THERAP 1 TAB PO SCH (08:55)
[2020-02-12] MEDS: lisinopriL 40 MG TAB PO SCH (08:55)
[2020-02-12] MEDS: THIAMINE 100 MG TAB PO SCH (08:55)
[2020-02-12] MEDS: PROPRANOLOL 10 MG TAB PO SCH ×2 (08:58→20:44)
[2020-02-12] MEDS: FOLIC ACID 1 MG TAB PO SCH (08:58)
[2020-02-12] MEDS ORDERED: PROHANCE 279.3MG/ML 15ML VIAL (A9576) As Ordered ONE (11:17)
[2020-02-12] MEDS ORDERED: PROHANCE 279.3MG/ML 5ML VIAL (A9576) As Ordered ONE (11:17)
[2020-02-12] MEDS: BACITRACIN OINT 30GM TOP SCH ×2 (13:42→20:45)
[2020-02-12 14:18] VITALS: BP 134/86
--- NOTE | 2020-02-12 16:30 | REP ---
REASON FOR EXAM: Assess for septic tenosynovitis. The distal aspects of digits 2 through 4 were excluded from the exam. The technologist has placed in the patient's Synapse Power Jacket that the examination is somewhat limited. GADOLINIUM UTILIZED TODAY: 17 mL of ProHance. There is diffuse T2 hypersignal seen superficial to all extensor digitorum communis tendons to all digits. All imaged extensor and flexor tendons themselves are intact and of normal appearing low signal throughout. Increased fluid is seen in the imaged distal aspects of the tendon sheaths of digits 3 through 4 inclusive, but this collection of fluid is predominantly dorsal, with the exception of fluid surrounding the medial extensor tendons and again particularly the extensor digiti minimi tendon. There is no evidence of a joint effusion. The marrow signal is within normal limits. There is no discernible abscess at this time. IMPRESSION: 1. Fluid collections, as described above. The medial fluid collection seen dorsally and measuring 2 cm does have some peripheral enhancement. No definite abscess is seen at this time; however, I would recommend close followup. 2. Extensor tenosynovitis, as described above. 3. Exam limitations, as described above. Electronically Signed by Fredis Vyas DO 02/12/2020 04:47 P
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
[2020-02-12] MEDS: buPROPion (WELLBUTRIN SR) 100 MG SR TAB PO SCH (20:42)
[2020-02-12] MEDS: DOXYCYCLINE HYCLATE 100 MG TAB PO SCH (20:42)
[2020-02-12] MEDS: traZODone 50 MG TAB PO SCH (20:42)
[2020-02-12 22:00] VITALS: BP_SYST 133; BP_SYST 139; BP_DIAS 90; BP_DIAS 93
[2020-02-13 06:00] VITALS: BP 122/85
[2020-02-13 06:49] LABS: BASO % 0.5 % (0.0-1.0); EOS # 0.1 10^3/uL (0.0-0.5); EOS % 1.5 % (0.0-3.0); HEMATOCRIT 39.9 % (42.0-52.0); HEMOGLOBIN 13.3 g/dl (13.5-17.5); LYMPH # 1.5 10^3/uL (1.5-5.0); MEAN CORPUSCULAR HEMOGLOBIN 31.1 pg (27.0-33.0); MEAN CORPUSCULAR HGB CONC 33.3 g/dl (32.0-36.5); MEAN CORPUSCULAR VOLUME 93.4 fl (80.0-96.0); MONO # 1.3 10^3/uL (0.0-0.8); MONO % 14.3 % (0.0-5.0); NEUTROPHILS # 5.7 10^3/uL (1.5-8.5); NEUTROPHILS % 65.7 % (36.0-66.0); PLATELET COUNT, AUTOMATED 324 10^3/uL (150-450); RED BLOOD COUNT 4.27 10^6/uL (4.30-6.10); WHITE BLOOD COUNT 8.7 10^3/uL (4.0-10.0)
[2020-02-13 07:22] LABS: ALBUMIN 2.7 GM/DL (3.2-5.2); ALT/SGPT 43 U/L (12-78); BILIRUBIN,TOTAL 0.8 MG/DL (0.2-1.0); BLOOD UREA NITROGEN 8 MG/DL (7-18); CALCIUM LEVEL 9.6 MG/DL (8.5-10.1); CARBON DIOXIDE LEVEL 31 MEQ/L (21-32); CHLORIDE LEVEL 102 MEQ/L (98-107); CREATININE FOR GFR 0.81 MG/DL (0.70-1.30); GLOMERULAR FILTRATION RATE > 60.0 (>60); GLUCOSE, FASTING 106 MG/DL (70-100); POTASSIUM SERUM 3.2 MEQ/L (3.5-5.1); SODIUM LEVEL 136 MEQ/L (136-145); TOTAL PROTEIN 7.7 GM/DL (6.4-8.2)
[2020-02-13] MEDS ORDERED: POTASSIUM CHLORIDE 10 MEQ SR TABLET PO ONE ×2 (08:00)
[2020-02-13] MEDS: DOXYCYCLINE HYCLATE 100 MG TAB PO SCH ×2 (10:13→21:50)
[2020-02-13] MEDS: buPROPion (WELLBUTRIN SR) 100 MG SR TAB PO SCH ×2 (10:13→21:49)
[2020-02-13] MEDS: levETIRAcetam 250MG TABLET (KEPPRA) PO SCH ×2 (10:14→21:50)
[2020-02-13] MEDS: SENNA 8.6 MG TAB (SENOKOT) PO SCH (10:14)
[2020-02-13] MEDS: MULTIVITAMINS/MINERALS THERAP 1 TAB PO SCH (10:14)
[2020-02-13] MEDS: PROPRANOLOL 10 MG TAB PO SCH ×2 (10:14→21:50)
[2020-02-13] MEDS: FOLIC ACID 1 MG TAB PO SCH (10:15)
[2020-02-13] MEDS: traZODone 50 MG TAB PO SCH ×3 (10:15→21:49)
[2020-02-13] MEDS: BACITRACIN OINT 30GM TOP SCH ×2 (10:15→21:50)
[2020-02-13] MEDS: lisinopriL 40 MG TAB PO SCH (10:15)
[2020-02-13 14:00] VITALS: BP 124/84
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
[2020-02-13 22:00] VITALS: BP 151/83
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
[2020-02-14 06:00] VITALS: BP 129/84
[2020-02-14 06:25] LABS: BASO # 0.1 10^3/uL (0.0-0.2); BASO % 0.7 % (0.0-1.0); EOS # 0.2 10^3/uL (0.0-0.5); EOS % 1.9 % (0.0-3.0); HEMATOCRIT 40.4 % (42.0-52.0); HEMOGLOBIN 13.2 g/dl (13.5-17.5); LYMPH # 2.1 10^3/uL (1.5-5.0); LYMPH % 23.3 % (24.0-44.0); MEAN CORPUSCULAR HEMOGLOBIN 30.6 pg (27.0-33.0); MEAN CORPUSCULAR HGB CONC 32.7 g/dl (32.0-36.5); MEAN CORPUSCULAR VOLUME 93.7 fl (80.0-96.0); MONO # 1.1 10^3/uL (0.0-0.8); MONO % 12.3 % (0.0-5.0); NEUTROPHILS # 5.3 10^3/uL (1.5-8.5); NEUTROPHILS % 60.4 % (36.0-66.0); PLATELET COUNT, AUTOMATED 337 10^3/uL (150-450); RED BLOOD COUNT 4.31 10^6/uL (4.30-6.10); WHITE BLOOD COUNT 8.8 10^3/uL (4.0-10.0)
[2020-02-14 06:40] LABS: ALBUMIN 2.5 GM/DL (3.2-5.2); ALT/SGPT 46 U/L (12-78); BILIRUBIN,TOTAL 0.4 MG/DL (0.2-1.0); BLOOD UREA NITROGEN 6 MG/DL (7-18); CALCIUM LEVEL 9.2 MG/DL (8.5-10.1); CARBON DIOXIDE LEVEL 29 MEQ/L (21-32); CHLORIDE LEVEL 104 MEQ/L (98-107); GLOMERULAR FILTRATION RATE > 60.0 (>60); GLUCOSE, FASTING 98 MG/DL (70-100); POTASSIUM SERUM 3.6 MEQ/L (3.5-5.1); SODIUM LEVEL 139 MEQ/L (136-145); TOTAL PROTEIN 6.9 GM/DL (6.4-8.2)
[2020-02-14 08:44] VITALS: BP 129/84
[2020-02-14] MEDS: PROPRANOLOL 10 MG TAB PO SCH (08:44)
[2020-02-14] MEDS: lisinopriL 40 MG TAB PO SCH (08:44)
[2020-02-14] MEDS: buPROPion (WELLBUTRIN SR) 100 MG SR TAB PO SCH (08:44)
[2020-02-14] MEDS: levETIRAcetam 250MG TABLET (KEPPRA) PO SCH (08:44)
[2020-02-14] MEDS: traZODone 50 MG TAB PO SCH (08:44)
[2020-02-14] MEDS: MULTIVITAMINS/MINERALS THERAP 1 TAB PO SCH (08:44)
[2020-02-14] MEDS: SENNA 8.6 MG TAB (SENOKOT) PO SCH (08:44)
[2020-02-14] MEDS: BACITRACIN OINT 30GM TOP SCH (08:44)
[2020-02-14] MEDS: FOLIC ACID 1 MG TAB PO SCH (08:44)
[2020-02-14] MEDS: DOXYCYCLINE HYCLATE 100 MG TAB PO SCH (08:44)
[2020-02-14] MEDS ORDERED: DOXY100T PO (10:22)
[2020-02-14] MEDS ORDERED: BACI50OI TOP (10:22)
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
== END 2020-02-14 14:30 | disposition home or self-care (01) | DRG 720 ==
LOC: M ED 10:47 → M ED INP 16:23 → ENRESERV 19:40 → M MSPAV 21:58
PROVIDERS: ADMIT Internal Medicine; ATTEND Internal Medicine
DX: A41.9 Sepsis, unspecified organism (principal); B17.10 Acute hepatitis C without hepatic coma; I10 Essential (primary) hypertension; L03.312 Cellulitis of back [any part except buttock and flank]; L03.221 Cellulitis of neck; F14.23 Cocaine dependence with withdrawal; L03.113 Cellulitis of right upper limb; L03.114 Cellulitis of left upper limb; F15.23 Other stimulant dependence with withdrawal; G40.909 Epilepsy, unspecified, not intractable, without status epilepticus; F31.9 Bipolar disorder, unspecified; Z79.899 Other long term (current) drug therapy; F12.90 Cannabis use, unspecified, uncomplicated; F11.90 Opioid use, unspecified, uncomplicated; K21.9 Gastro-esophageal reflux disease without esophagitis; L03.211 Cellulitis of face; H60.12 Cellulitis of left external ear; B95.61 Methicillin susceptible Staphylococcus aureus infection as the cause of diseases classified elsewhere

== ENCOUNTER 2020-04-30 14:27 | Outpatient (RCR) | payer OTHER ==
[~2020-04-30 14:27] MED LIST changes: +BACI50OI TOP; +DOXY100T PO; +LEVE750T5 PO; +PANT40TA29 PO; -PANT40TA3 PO
== END 2020-05-29 ==
LOC: M ST 14:27
PROVIDERS: ATTEND Neurological Surgery
DX: S06.5X Traumatic subdural hemorrhage (principal); S06.6X9D Traumatic subarachnoid hemorrhage with loss of consciousness of unspecified duration, subsequent encounter; Z98.890 Other specified postprocedural states

== ENCOUNTER → 2020-06-05 | Outpatient (REF) | payer OTHER, MEDICAID ==
[2020-06-05 14:23] LABS: BASO % 0.5 % (0.0-1.0); EOS # 0.2 10^3/uL (0.0-0.5); EOS % 3.7 % (0.0-3.0); HEMATOCRIT 45.9 % (42.0-52.0); HEMOGLOBIN 14.8 g/dl (13.5-17.5); LYMPH # 1.7 10^3/uL (1.5-5.0); LYMPH % 30.6 % (24.0-44.0); MEAN CORPUSCULAR HEMOGLOBIN 30.7 pg (27.0-33.0); MEAN CORPUSCULAR HGB CONC 32.2 g/dl (32.0-36.5); MEAN CORPUSCULAR VOLUME 95.2 fl (80.0-96.0); MONO # 0.5 10^3/uL (0.0-0.8); MONO % 8.8 % (0.0-5.0); NEUTROPHILS # 3.2 10^3/uL (1.5-8.5); NEUTROPHILS % 56.2 % (36.0-66.0); PLATELET COUNT, AUTOMATED 265 10^3/uL (150-450); RED BLOOD COUNT 4.82 10^6/uL (4.30-6.10); WHITE BLOOD COUNT 5.7 10^3/uL (4.0-10.0)
== END ==
LOC: M LAB REF 12:51
PROVIDERS: ATTEND Physician Assistant
DX: Z00.00 Encounter for general adult medical examination without abnormal findings (principal); F19.11 Other psychoactive substance abuse, in remission; F41.8 Other specified anxiety disorders; R26.81 Unsteadiness on feet; I10 Essential (primary) hypertension; E55.9 Vitamin D deficiency, unspecified; Z13.228 Encounter for screening for other metabolic disorders; S82.251 Displaced comminuted fracture of shaft of right tibia; S02.91XS Unspecified fracture of skull, sequela; S06.2X Diffuse traumatic brain injury

== ENCOUNTER 2020-06-28 14:30 | Outpatient (RCR) | payer OTHER | END 2020-06-29 | LOC: M ST 14:30 | PROVIDERS: ATTEND Neurological Surgery | DX: S06.5X Traumatic subdural hemorrhage (principal); S06.6X9D Traumatic subarachnoid hemorrhage with loss of consciousness of unspecified duration, subsequent encounter; Z98.890 Other specified postprocedural states; W18.30XD Fall on same level, unspecified, subsequent encounter; Y92.9 Unspecified place or not applicable ==

== ENCOUNTER → 2020-07-04 | Outpatient (REF) | payer OTHER, MEDICAID ==
[2020-08-18 18:26] LABS: ALBUMIN 3.9 GM/DL (3.2-5.2); ALT/SGPT 14 U/L (12-78); BILIRUBIN,TOTAL 0.4 MG/DL (0.2-1.0); BLOOD UREA NITROGEN 20 MG/DL (7-18); CALCIUM LEVEL 9.2 MG/DL (8.5-10.1); CARBON DIOXIDE LEVEL 26 MEQ/L (21-32); CHLORIDE LEVEL 108 MEQ/L (98-107); CHOLESTEROL LEVEL 148 MG/DL (<200); CHOLESTEROL RISK RATIO 4.228 (<5); CREATININE FOR GFR 1.05 MG/DL (0.70-1.30); FREE T4 0.95 NG/DL (0.76-1.46); GLOMERULAR FILTRATION RATE > 60.0 (>60); GLUCOSE, FASTING 97 MG/DL (70-100); HDL CHOLESTEROL 35 MG/DL (>40); LDL CHOLESTEROL 81 MG/DL (<100); NON-HDL-C 113 MG/DL; POTASSIUM SERUM 4.4 MEQ/L (3.5-5.1); SODIUM LEVEL 139 MEQ/L (136-145); TOTAL 25(OH) VITAMIN D 36.8 NG/ML (30.0-100.0); TOTAL PROTEIN 7.3 GM/DL (6.4-8.2); TRIGLYCERIDES LEVEL 161 MG/DL (<150)
== END ==
LOC: M LAB REF 11:50
PROVIDERS: ATTEND Physician Assistant
DX: F41.8 Other specified anxiety disorders (principal); I10 Essential (primary) hypertension; E55.9 Vitamin D deficiency, unspecified

== ENCOUNTER 2020-07-19 15:00 | Outpatient (RCR) | payer OTHER | END 2020-07-30 | LOC: M ST 15:00 | PROVIDERS: ATTEND Neurological Surgery | DX: S06.5X Traumatic subdural hemorrhage (principal); S06.6X9D Traumatic subarachnoid hemorrhage with loss of consciousness of unspecified duration, subsequent encounter; Z98.890 Other specified postprocedural states; W18.30XD Fall on same level, unspecified, subsequent encounter; Y92.9 Unspecified place or not applicable ==

== ENCOUNTER → 2021-01-14 | Outpatient (REF) | payer OTHER ==
[~2021-01-14] MED LIST changes: +GABA-282 PO; -GABA-843 PO; -LISI40TA PO; +LISI40TA4 PO
[2021-01-14 12:29] LABS: CHOLESTEROL RISK RATIO 3.431 (<5)
[2021-01-14 12:35] LABS: TOTAL 25(OH) VITAMIN D 23.8 NG/ML (30.0-100.0)
[2021-01-14 13:47] LABS: HEMOGLOBIN A1c 5.1 %
== END ==
LOC: M LAB REF 11:33
PROVIDERS: ATTEND Physician Assistant
DX: I10 Essential (primary) hypertension (principal); E66.9 Obesity, unspecified; E55.9 Vitamin D deficiency, unspecified

== ENCOUNTER → 2021-07-23 | Outpatient (CLI) | payer OTHER ==
[2021-07-23 14:27] LABS: BASO % 0.4 % (0.0-1.0); EOS # 0.3 10^3/uL (0.0-0.5); EOS % 3.3 % (0.0-3.0); HEMATOCRIT 42.2 % (42.0-52.0); HEMOGLOBIN 14.1 g/dl (13.5-17.5); LYMPH # 1.9 10^3/uL (1.5-5.0); LYMPH % 22.4 % (24.0-44.0); MEAN CORPUSCULAR HEMOGLOBIN 30.6 pg (27.0-33.0); MEAN CORPUSCULAR HGB CONC 33.4 g/dl (32.0-36.5); MEAN CORPUSCULAR VOLUME 91.5 fl (80.0-96.0); MONO # 0.5 10^3/uL (0.0-0.8); MONO % 5.5 % (2.0-8.0); NEUTROPHILS # 5.7 10^3/uL (1.5-8.5); NEUTROPHILS % 67.9 % (36.0-66.0); PLATELET COUNT, AUTOMATED 254 10^3/uL (150-450); RED BLOOD COUNT 4.61 10^6/uL (4.30-6.10); WHITE BLOOD COUNT 8.4 10^3/uL (4.0-10.0)
[2021-07-23 14:50] LABS: ALBUMIN 3.4 GM/DL (3.2-5.2); ALT/SGPT 17 U/L (12-78); BILIRUBIN,DIRECT 0.2 MG/DL (0.0-0.2); BILIRUBIN,TOTAL 0.6 MG/DL (0.2-1.0); BLOOD UREA NITROGEN 18 MG/DL (7-18); CREATININE FOR GFR 1.01 MG/DL (0.70-1.30); GLOMERULAR FILTRATION RATE > 60.0 (>60); TOTAL PROTEIN 6.8 GM/DL (6.4-8.2)
[2021-07-23 15:08] LABS: HEPATITIS B SURFACE ANTIGEN NEGATIVE (NEGATIVE)
[2021-07-24 17:07] LABS: HEPATITIS B CORE ANTIBODY IGG Negative (Negative); HEPATITIS C QUANTITATION HCV Not Detected IU/mL (.)
== END ==
LOC: M LAB 13:25
PROVIDERS: ATTEND Internal Medicine Gastroenterology
DX: K62.5 Hemorrhage of anus and rectum (principal)

== ENCOUNTER → 2022-02-17 | Outpatient (CLI) | payer OTHER, MEDICAID | LOC: M WUC 11:05 | PROVIDERS: ATTEND Physician Assistant | DX: M25.512 Pain in left shoulder (principal) ==

== ENCOUNTER → 2022-03-12 | Outpatient (CLI) | payer OTHER, MEDICAID | LOC: M SOG 11:18 | PROVIDERS: ATTEND Orthopaedic Surgery | DX: M25.512 Pain in left shoulder (principal) ==

== ENCOUNTER → 2022-03-26 | Outpatient (CLI) | payer OTHER | LOC: M PLAIMG 12:29 | PROVIDERS: ATTEND Orthopaedic Surgery | DX: M75.82 Other shoulder lesions, left shoulder (principal); M25.412 Effusion, left shoulder; M67.814 Other specified disorders of tendon, left shoulder ==

== ENCOUNTER 2022-08-12 13:30 | Inpatient (IN) | payer MEDICAID, OTHER ==
[~2022-08-12] VITALS: Ht 170.2 cm; Wt 85.6 kg
[2022-08-12] MEDS ORDERED: AMLO1TAB25 PO (13:43)
[2022-08-12] MEDS ORDERED: PRAZ2CAP PO (13:43)
[2022-08-12] MEDS ORDERED: VITA100093 PO (13:43)
[2022-08-12] MEDS ORDERED: LEXA1TAB PO (13:43)
[2022-08-12] MEDS ORDERED: GABA-282 PO (13:43)
[2022-08-12] MEDS ORDERED: OMEP-173 PO (13:43)
[2022-08-12 14:54] LABS: HEMATOCRIT 42.7 % (42.0-52.0); HEMOGLOBIN 14.1 g/dl (13.5-17.5); MEAN CORPUSCULAR HEMOGLOBIN 31.5 pg (27.0-33.0); MEAN CORPUSCULAR VOLUME 95.3 fl (80.0-96.0); PLATELET COUNT, AUTOMATED 253 10^3/uL (150-450); RED BLOOD COUNT 4.48 10^6/uL (4.30-6.10); WHITE BLOOD COUNT 11.8 10^3/uL (4.0-10.0)
[2022-08-12 15:18] LABS: AMPHETAMINES LEVEL URINE NEGATIVE (NEGATIVE); BARBITURATES URINE NEGATIVE (NEGATIVE); BENZODIAZEPINES URINE NEGATIVE (NEGATIVE); CANNABINOIDS URINE POSITIVE (NEGATIVE); COCAINE METABOLITE URINE NEGATIVE (NEGATIVE); METHADONE URINE NEGATIVE (NEGATIVE); OPIATES URINE NEGATIVE (NEGATIVE); PHENCYCLIDINE URINE NEGATIVE (NEGATIVE)
[2022-08-12 15:21] LABS: RSV AMPLIFICATION NEGATIVE (NEGATIVE)
[2022-08-12 16:27] LABS: ACETAMINOPHEN LEVEL < 2.0 UG/ML (10.0-30.0); ALBUMIN 3.9 GM/DL (3.2-5.2); ALT/SGPT 19 U/L (12-78); BILIRUBIN,DIRECT 0.1 MG/DL (0.0-0.2); BILIRUBIN,TOTAL 0.4 MG/DL (0.2-1.0); BLOOD UREA NITROGEN 17 MG/DL (7-18); CALCIUM LEVEL 9.5 MG/DL (8.5-10.1); CARBON DIOXIDE LEVEL 26 MEQ/L (21-32); CHLORIDE LEVEL 107 MEQ/L (98-107); CREATININE FOR GFR 0.96 MG/DL (0.70-1.30); ETHYL ALCOHOL (ETHANOL) 0.004 % (0.000-0.010); GLOMERULAR FILTRATION RATE > 60.0 (>60); GLUCOSE, FASTING 93 MG/DL (70-100); POTASSIUM SERUM 4.6 MEQ/L (3.5-5.1); SALICYLATE LEVEL 2.3 MG/DL (5.0-30.0); SODIUM LEVEL 138 MEQ/L (136-145); TOTAL PROTEIN 7.3 GM/DL (6.4-8.2)
[2022-08-12] MEDS ORDERED: PROPRANOLOL 10 MG TAB PO ONE (17:25)
[2022-08-12] MEDS ORDERED: traZODone 50 MG TAB PO ONE (17:25)
[2022-08-12] MEDS ORDERED: levETIRAcetam 250MG TABLET (KEPPRA) PO ONE (17:25)
[2022-08-12] MEDS ORDERED: HOME MED LIST COMPLETE! XX SCH (19:05)
[2022-08-12] MEDS ORDERED: LORazepam 1 MG TAB PO STA ×2 (19:39→21:11)
[2022-08-12] MEDS ORDERED: GABAPENTIN 300 MG CAP PO ONE (21:15)
[2022-08-12] MEDS ORDERED: PRAZOSIN 1 MG CAP PO ONE (21:15)
[2022-08-13] MEDS: VITAMIN D 1,000 INTERNATIONAL UNITS TABLET PO SCH (08:03)
[2022-08-13] MEDS: OMEPRAZOLE 20MG CAP PO SCH (08:03)
[2022-08-13] MEDS: ESCITALOPRAM OXALATE 10 MG TAB (LEXAPRO) PO SCH (08:03)
[2022-08-13] MEDS: PRAZOSIN 1 MG CAP PO SCH ×3 (08:04→21:00)
[2022-08-13] MEDS: GABAPENTIN 300 MG CAP PO SCH ×2 (08:04→21:00)
[2022-08-13] MEDS: lisinopriL 40MG TAB PO SCH (08:04)
[2022-08-13] MEDS: SENNA 8.6 MG TAB (SENOKOT) PO SCH (08:04)
[2022-08-13] MEDS: traZODone 50 MG TAB PO SCH ×3 (08:04→21:00)
[2022-08-13] MEDS: levETIRAcetam 250MG TABLET (KEPPRA) PO SCH ×2 (08:05→21:00)
[2022-08-13] MEDS ORDERED: PROPRANOLOL 10 MG TAB PO SCH (09:00)
[2022-08-13] MEDS ORDERED: LORazepam 2 MG TAB PO STA (09:25)
[2022-08-13] MEDS ORDERED: OLANZapine ORAL DISINTEGRATING TAB 5MG PO ONE (14:05)
[2022-08-13] MEDS ORDERED: ALPRAZolam 0.5 MG TAB PO ONE (15:30)
[2022-08-13] MEDS ORDERED: LORazepam 2 MG/ML VIAL IM STA (16:39)
[2022-08-13] MEDS ORDERED: diphenhydrAMINE 50MG/ML VIAL (J1200) IM ONE (16:40)
[2022-08-13] MEDS ORDERED: diphenhydrAMINE 50MG/ML VIAL (J1200) As Ordered ONE (16:40)
[2022-08-13] MEDS ORDERED: HALOPERIDOL 5MG/ML VIAL (J1630 PER 1) As Ordered ONE (16:40)
[2022-08-13] MEDS ORDERED: HALOPERIDOL 5MG/ML VIAL (J1630 PER 1) IM ONE (16:40)
[2022-08-13] MEDS ORDERED: LORazepam 2 MG/ML VIAL As Ordered ONE (16:41)
[2022-08-13] MEDS: PROPRANOLOL 10 MG TAB PO SCH (21:00)
[2022-08-14] MEDS ORDERED: OLANZapine ORAL DISINTEGRATING TAB 5MG PO ONE ×2 (09:25→20:00)
[2022-08-14] MEDS: GABAPENTIN 300 MG CAP PO SCH ×2 (10:02→20:20)
[2022-08-14] MEDS: levETIRAcetam 250MG TABLET (KEPPRA) PO SCH ×2 (10:02→20:19)
[2022-08-14] MEDS: PROPRANOLOL 10 MG TAB PO SCH ×2 (10:03→20:19)
[2022-08-14] MEDS: PRAZOSIN 1 MG CAP PO SCH ×3 (10:04→20:19)
[2022-08-14] MEDS: OMEPRAZOLE 20MG CAP PO SCH (10:04)
[2022-08-14] MEDS: VITAMIN D 1,000 INTERNATIONAL UNITS TABLET PO SCH (10:04)
[2022-08-14] MEDS: lisinopriL 40MG TAB PO SCH (10:04)
[2022-08-14] MEDS: traZODone 50 MG TAB PO SCH ×3 (10:04→20:19)
[2022-08-14] MEDS: SENNA 8.6 MG TAB (SENOKOT) PO SCH (10:04)
[2022-08-14] MEDS: ESCITALOPRAM OXALATE 10 MG TAB (LEXAPRO) PO SCH (10:04)
[2022-08-14] MEDS ORDERED: LORazepam 2 MG TAB PO ONE (18:20)
[2022-08-14] MEDS ORDERED: LORazepam 1 MG TAB PO ONE (20:00)
[2022-08-15] MEDS ORDERED: MOM 30ML SUSPENSION UDC PO PRN (01:40)
[2022-08-15] MEDS ORDERED: ACETAMINOPHEN TAB 650MG DOSE (2X325MG) PO PRN (01:40)
[2022-08-15] MEDS ORDERED: MAALOX 30 ML SUSP *UDC PO PRN (01:40)
[2022-08-15 03:04] VITALS: BP 162/91
[2022-08-15 06:57] VITALS: BP 128/84
[2022-08-15] MEDS: traZODone 50 MG TAB PO SCH ×3 (08:44→21:00)
[2022-08-15] MEDS: OMEPRAZOLE 20MG CAP PO SCH (08:45)
[2022-08-15] MEDS: PRAZOSIN 1 MG CAP PO SCH ×3 (08:45→21:00)
[2022-08-15] MEDS: GABAPENTIN 300 MG CAP PO SCH ×2 (08:45→21:43)
[2022-08-15] MEDS: VITAMIN D 1,000 INTERNATIONAL UNITS TABLET PO SCH (08:46)
[2022-08-15] MEDS: SENNA 8.6 MG TAB (SENOKOT) PO SCH (08:46)
[2022-08-15] MEDS: levETIRAcetam 250MG TABLET (KEPPRA) PO SCH ×2 (08:46→21:00)
[2022-08-15] MEDS: lisinopriL 40MG TAB PO SCH (08:47)
[2022-08-15] MEDS ORDERED: PROPRANOLOL 10 MG TAB PO SCH (09:00)
[2022-08-15] MEDS ORDERED: ESCITALOPRAM OXALATE 10 MG TAB (LEXAPRO) PO SCH (09:00)
[2022-08-15] MEDS: NICOTINE 14 MG/24 HR TRANSDERMAL TD SCH (11:28)
[2022-08-15 16:30] VITALS: BP 141/82
[2022-08-15] MEDS: PROPRANOLOL 20 MG TAB PO SCH (21:00)
[2022-08-16 06:10] VITALS: BP 146/91
[2022-08-16] MEDS: GABAPENTIN 300 MG CAP PO SCH ×2 (09:00→21:00)
[2022-08-16] MEDS: VITAMIN D 1,000 INTERNATIONAL UNITS TABLET PO SCH (09:00)
[2022-08-16] MEDS: lisinopriL 40MG TAB PO SCH (09:00)
[2022-08-16] MEDS: ESCITALOPRAM OXALATE 5MG TABLET (LEXAPRO) PO SCH (09:00)
[2022-08-16] MEDS: NICOTINE 14 MG/24 HR TRANSDERMAL TD SCH (09:00)
[2022-08-16] MEDS: PRAZOSIN 1 MG CAP PO SCH ×3 (09:00→21:00)
[2022-08-16] MEDS: SENNA 8.6 MG TAB (SENOKOT) PO SCH (09:00)
[2022-08-16] MEDS: traZODone 50 MG TAB PO SCH ×3 (09:00→21:00)
[2022-08-16] MEDS: PROPRANOLOL 20 MG TAB PO SCH ×2 (09:00→21:00)
[2022-08-16] MEDS: OMEPRAZOLE 20MG CAP PO SCH (09:00)
[2022-08-16] MEDS: levETIRAcetam 250MG TABLET (KEPPRA) PO SCH ×2 (09:00→21:00)
[2022-08-16 18:13] VITALS: BP 224/107
[2022-08-16 19:10] VITALS: BP 144/92
[2022-08-17] MEDS: GABAPENTIN 300 MG CAP PO SCH ×2 (08:53→20:15)
[2022-08-17] MEDS: PROPRANOLOL 20 MG TAB PO SCH ×2 (08:54→20:15)
[2022-08-17] MEDS: lisinopriL 40MG TAB PO SCH (08:54)
[2022-08-17] MEDS: traZODone 50 MG TAB PO SCH ×3 (08:56→20:15)
[2022-08-17] MEDS: SENNA 8.6 MG TAB (SENOKOT) PO SCH (08:57)
[2022-08-17] MEDS: ESCITALOPRAM OXALATE 5MG TABLET (LEXAPRO) PO SCH (08:57)
[2022-08-17] MEDS: PRAZOSIN 1 MG CAP PO SCH ×3 (08:57→20:15)
[2022-08-17] MEDS: levETIRAcetam 250MG TABLET (KEPPRA) PO SCH ×2 (08:57→20:15)
[2022-08-17] MEDS: OMEPRAZOLE 20MG CAP PO SCH (08:57)
[2022-08-17] MEDS: VITAMIN D 1,000 INTERNATIONAL UNITS TABLET PO SCH (08:58)
[2022-08-17] MEDS: NICOTINE 14 MG/24 HR TRANSDERMAL TD SCH (08:58)
[2022-08-17 16:32] VITALS: BP 135/78
[2022-08-18 06:21] VITALS: BP 131/63
[2022-08-18] MEDS: NICOTINE 14 MG/24 HR TRANSDERMAL TD SCH (08:41)
[2022-08-18] MEDS: OMEPRAZOLE 20MG CAP PO SCH (08:42)
[2022-08-18] MEDS: levETIRAcetam 250MG TABLET (KEPPRA) PO SCH ×2 (08:42→21:09)
[2022-08-18] MEDS: ESCITALOPRAM OXALATE 5MG TABLET (LEXAPRO) PO SCH (08:42)
[2022-08-18] MEDS: GABAPENTIN 300 MG CAP PO SCH ×2 (08:42→21:09)
[2022-08-18] MEDS: PROPRANOLOL 20 MG TAB PO SCH ×2 (08:43→21:09)
[2022-08-18] MEDS: PRAZOSIN 1 MG CAP PO SCH ×3 (08:43→21:09)
[2022-08-18] MEDS: VITAMIN D 1,000 INTERNATIONAL UNITS TABLET PO SCH (08:43)
[2022-08-18] MEDS: lisinopriL 40MG TAB PO SCH (08:43)
[2022-08-18] MEDS: traZODone 50 MG TAB PO SCH ×3 (08:44→21:09)
[2022-08-18] MEDS: SENNA 8.6 MG TAB (SENOKOT) PO SCH (08:44)
[2022-08-18] MEDS: OLANZapine ORAL DISINTEGRATING TAB 5MG PO PRN ×2 (11:16→21:09)
[2022-08-18 17:37] VITALS: BP 116/65
[2022-08-18] MEDS: ARIPiprazole 2 MG TAB PO SCH (21:08)
[2022-08-19 06:40] VITALS: BP 130/71
[2022-08-19] MEDS: NICOTINE 14 MG/24 HR TRANSDERMAL TD SCH (08:14)
[2022-08-19 08:16] VITALS: BP 125/72
[2022-08-19] MEDS: OMEPRAZOLE 20MG CAP PO SCH (08:19)
[2022-08-19] MEDS: PROPRANOLOL 20 MG TAB PO SCH ×2 (08:19→20:19)
[2022-08-19] MEDS: ESCITALOPRAM OXALATE 5MG TABLET (LEXAPRO) PO SCH (08:19)
[2022-08-19] MEDS: GABAPENTIN 300 MG CAP PO SCH ×2 (08:19→20:20)
[2022-08-19] MEDS: levETIRAcetam 250MG TABLET (KEPPRA) PO SCH ×2 (08:19→20:18)
[2022-08-19] MEDS: SENNA 8.6 MG TAB (SENOKOT) PO SCH (08:19)
[2022-08-19] MEDS: traZODone 50 MG TAB PO SCH ×3 (08:20→20:18)
[2022-08-19] MEDS: PRAZOSIN 1 MG CAP PO SCH ×3 (08:20→20:20)
[2022-08-19] MEDS: VITAMIN D 1,000 INTERNATIONAL UNITS TABLET PO SCH (08:20)
[2022-08-19] MEDS: lisinopriL 40MG TAB PO SCH (08:20)
[2022-08-19 18:21] VITALS: BP 142/80
[2022-08-19] MEDS: ARIPiprazole 2 MG TAB PO SCH (20:18)
[2022-08-19] MEDS: OLANZapine ORAL DISINTEGRATING TAB 5MG PO PRN (20:20)
[2022-08-20 06:46] VITALS: BP 135/84
[2022-08-20] MEDS: NICOTINE 14 MG/24 HR TRANSDERMAL TD SCH (08:58)
[2022-08-20] MEDS: SENNA 8.6 MG TAB (SENOKOT) PO SCH (09:02)
[2022-08-20] MEDS: GABAPENTIN 300 MG CAP PO SCH ×2 (09:02→20:42)
[2022-08-20] MEDS: traZODone 50 MG TAB PO SCH ×3 (09:02→20:41)
[2022-08-20] MEDS: lisinopriL 40MG TAB PO SCH (09:02)
[2022-08-20] MEDS: PROPRANOLOL 20 MG TAB PO SCH ×2 (09:02→20:42)
[2022-08-20] MEDS: levETIRAcetam 250MG TABLET (KEPPRA) PO SCH ×2 (09:02→20:42)
[2022-08-20] MEDS: OMEPRAZOLE 20MG CAP PO SCH (09:02)
[2022-08-20] MEDS: ESCITALOPRAM OXALATE 5MG TABLET (LEXAPRO) PO SCH (09:02)
[2022-08-20] MEDS: PRAZOSIN 1 MG CAP PO SCH ×3 (09:03→20:41)
[2022-08-20] MEDS: VITAMIN D 1,000 INTERNATIONAL UNITS TABLET PO SCH (09:04)
[2022-08-20 18:26] VITALS: BP 150/81
[2022-08-20] MEDS: OLANZapine ORAL DISINTEGRATING TAB 5MG PO PRN (20:42)
[2022-08-20] MEDS: ARIPiprazole 2 MG TAB PO SCH (20:42)
[2022-08-21 06:33] VITALS: BP 126/83
[2022-08-21] MEDS: NICOTINE 14 MG/24 HR TRANSDERMAL TD SCH (08:12)
[2022-08-21] MEDS: VITAMIN D 1,000 INTERNATIONAL UNITS TABLET PO SCH (08:17)
[2022-08-21] MEDS: ESCITALOPRAM OXALATE 5MG TABLET (LEXAPRO) PO SCH (08:17)
[2022-08-21] MEDS: OMEPRAZOLE 20MG CAP PO SCH (08:17)
[2022-08-21] MEDS: lisinopriL 40MG TAB PO SCH (08:17)
[2022-08-21] MEDS: SENNA 8.6 MG TAB (SENOKOT) PO SCH (08:17)
[2022-08-21] MEDS: levETIRAcetam 250MG TABLET (KEPPRA) PO SCH (08:18)
[2022-08-21] MEDS: PRAZOSIN 1 MG CAP PO SCH (08:19)
[2022-08-21] MEDS: PROPRANOLOL 20 MG TAB PO SCH (08:19)
[2022-08-21] MEDS: GABAPENTIN 300 MG CAP PO SCH (08:19)
[2022-08-21 08:20] VITALS: BP 148/72
[2022-08-21] MEDS: traZODone 50 MG TAB PO SCH (08:20)
[2022-08-21] MEDS ORDERED: PROP20TA PO (09:59)
[2022-08-21] MEDS ORDERED: ABIL1TAB13 PO (09:59)
[2022-08-21] MEDS ORDERED: LEXA5TAB13 PO (09:59)
[2022-08-21] MEDS ORDERED: LEXA1TAB PO (09:59)
[2022-08-21] MEDS ORDERED: NICO14PA TD (09:59)
== END 2022-08-21 12:30 | disposition home or self-care (01) | DRG 753 ==
LOC: M ED 13:30 → M ED INP 08-15 01:37 → M PSY 08-15 02:58
PROVIDERS: ADMIT Student in an Organized Health Care Education/Training Program; ATTEND Student in an Organized Health Care Education/Training Program
DX: F32.89 Other specified depressive episodes (principal); G40.909 Epilepsy, unspecified, not intractable, without status epilepticus; I10 Essential (primary) hypertension; F31.9 Bipolar disorder, unspecified; F43.10 Post-traumatic stress disorder, unspecified; F12.90 Cannabis use, unspecified, uncomplicated; F63.9 Impulse disorder, unspecified; F41.9 Anxiety disorder, unspecified; G89.29 Other chronic pain; Z79.899 Other long term (current) drug therapy; F17.210 Nicotine dependence, cigarettes, uncomplicated; K21.9 Gastro-esophageal reflux disease without esophagitis

== ENCOUNTER 2022-10-30 13:49 | Emergency (ER) | payer OTHER ==
[~2022-10-30 13:49] MED LIST changes: +ABIL1TAB13 PO; +AMLO1TAB25 PO; +LEXA1TAB PO; +LEXA5TAB13 PO; +NICO14PA TD; +OMEP-173 PO; +PRAZ2CAP PO; +PROP20TA PO; +VITA100093 PO
[2022-10-30 15:14] LABS: HEMATOCRIT 47.4 % (42.0-52.0); HEMOGLOBIN 15.4 g/dl (13.5-17.5); MEAN CORPUSCULAR HEMOGLOBIN 31.1 pg (27.0-33.0); MEAN CORPUSCULAR HGB CONC 32.5 g/dl (32.0-36.5); MEAN CORPUSCULAR VOLUME 95.8 fl (80.0-96.0); PLATELET COUNT, AUTOMATED 318 10^3/uL (150-450); RED BLOOD COUNT 4.95 10^6/uL (4.30-6.10); WHITE BLOOD COUNT 6.9 10^3/uL (4.0-10.0)
[2022-10-30 15:28] LABS: ETHYL ALCOHOL (ETHANOL) 0.003 % (0.000-0.010)
[2022-10-30 15:29] LABS: BILIRUBIN,DIRECT < 0.1 MG/DL (<0.4)
[2022-10-30 15:30] LABS: ACETAMINOPHEN LEVEL < 2.0 UG/ML (10.0-20.0); SALICYLATE LEVEL < 3.0 MG/DL (<30)
[2022-10-30 15:32] LABS: ALBUMIN 3.9 G/DL (3.2-5.2); ALKALINE PHOSPHATASE 106 U/L (46-116); ALT/SGPT 15 U/L (7.0-40); AST/SGOT 14 U/L (<34); BILIRUBIN,TOTAL 0.2 MG/DL (0.3-1.2); BLOOD UREA NITROGEN 16 MG/DL (9-23); CALCIUM LEVEL 9.8 MG/DL (8.5-10.1); CARBON DIOXIDE LEVEL 27 MMOL/L (20-31); CHLORIDE LEVEL 108 MMOL/L (98-107); CREATININE FOR GFR 0.75 MG/DL (0.70-1.30); GLOMERULAR FILTRATION RATE > 60.0 (>60); GLUCOSE, FASTING 97 MG/DL (60-100); POTASSIUM SERUM 5.1 MMOL/L (3.5-5.1); SODIUM LEVEL 142 MMOL/L (136-145); THYROID STIMULATING HORMONE 1.129 uIU/ML (0.55-4.78); TOTAL PROTEIN 7.3 G/DL (5.7-8.2)
[2022-10-30 16:07] LABS: BARBITURATES URINE NEGATIVE (NEGATIVE); BENZODIAZEPINES URINE NEGATIVE (NEGATIVE); COCAINE METABOLITE URINE NEGATIVE (NEGATIVE); METHADONE URINE NEGATIVE (NEGATIVE); OPIATES URINE NEGATIVE (NEGATIVE)
[2022-10-30 16:08] LABS: PHENCYCLIDINE URINE NEGATIVE (NEGATIVE)
[2022-10-30 16:12] LABS: AMPHETAMINES LEVEL URINE POSITIVE (NEGATIVE); CANNABINOIDS URINE POSITIVE (NEGATIVE)
[2022-10-30 18:30] VITALS: BP 136/78
== END 2022-10-30 18:53 | disposition home or self-care (01) ==
LOC: M ED 13:49
DX: F43.0 Acute stress reaction (principal); R45.851 Suicidal ideations; E11.9 Type 2 diabetes mellitus without complications; F31.9 Bipolar disorder, unspecified; F17.200 Nicotine dependence, unspecified, uncomplicated; F12.10 Cannabis abuse, uncomplicated; Z86.79 Personal history of other diseases of the circulatory system; Z79.811 Long term (current) use of aromatase inhibitors; Z79.899 Other long term (current) drug therapy

== ENCOUNTER 2022-11-02 16:09 | Inpatient (IN) | payer OTHER ==
[2022-11-02] VITALS (7 sets, daily range): BP systolic 96–102; BP diastolic 57–65
[~2022-11-02] VITALS: Ht 170.2 cm; Wt 95.0 kg
[2022-11-02] MEDS ORDERED: MIDAZOLAM INJ 2MG/2ML VIAL (J2250 PER 1MG) As Ordered ONE (16:42)
[2022-11-02] MEDS: propofoL 1,000 MG in IV 1 EA IV SCH ×6 (16:56→21:31)
[2022-11-02 17:12] LABS: BASO # 0.1 10^3/uL (0.0-0.2); BASO % 0.2 % (0.0-1.0); HEMATOCRIT 50.8 % (42.0-52.0); HEMOGLOBIN 15.9 g/dl (13.5-17.5); LYMPH # 0.9 10^3/uL (1.5-5.0); LYMPH % 4.2 % (24.0-44.0); MEAN CORPUSCULAR HEMOGLOBIN 31.2 pg (27.0-33.0); MEAN CORPUSCULAR HGB CONC 31.3 g/dl (32.0-36.5); MEAN CORPUSCULAR VOLUME 99.6 fl (80.0-96.0); MONO # 0.5 10^3/uL (0.0-0.8); MONO % 2.5 % (2.0-8.0); NEUTROPHILS # 19.1 10^3/uL (1.5-8.5); NEUTROPHILS % 92.7 % (36.0-66.0); PLATELET COUNT, AUTOMATED 404 10^3/uL (150-450); WHITE BLOOD COUNT 20.6 10^3/uL (4.0-10.0)
[2022-11-02] MEDS ORDERED: NS 1,000 ML IV ONE ×2 (17:15→19:30)
[2022-11-02] MEDS ORDERED: PIPERACILLIN/TAZOBACTAM SOD 4.5 GM in D5W MINI-BAG PLUS 50 ML IV ONE (17:45)
[2022-11-02 17:47] LABS: BARBITURATES URINE NEGATIVE (NEGATIVE); BENZODIAZEPINES URINE NEGATIVE (NEGATIVE); METHADONE URINE NEGATIVE (NEGATIVE); OPIATES URINE NEGATIVE (NEGATIVE)
[2022-11-02 17:50] LABS: CK-MB VALUE MASS 3.7 NG/ML (<3.6); ETHYL ALCOHOL (ETHANOL) 0.003 % (0.000-0.010)
[2022-11-02 17:51] LABS: VENOUS BASE EXCESS -14.5 (-2.0-2.0); VENOUS O2 SATURATION 97.6 % (60.0-80.0); VENOUS PARTIAL PRESSURE CO2 73.6 mmHg (38.0-50.0); VENOUS PARTIAL PRESSURE O2 127.7 mmHg (30.0-50.0); VENOUS PH 7.007 UNITS (7.330-7.430); VENOUS STANDARD HCO3 13.7 MEQ/L; VENOUS TOTAL CO2 20.3 MEQ/L (24.0-28.0)
[2022-11-02 17:51] LABS: ACETAMINOPHEN LEVEL < 2.0 UG/ML (10.0-20.0)
[2022-11-02 17:52] LABS: BILIRUBIN,DIRECT < 0.1 MG/DL (<0.4); SALICYLATE LEVEL < 3.0 MG/DL (<30)
[2022-11-02 17:55] LABS: OSMOLALITY SERUM 298 MOSM/KG (275-295)
[2022-11-02 17:57] LABS: AMPHETAMINES LEVEL URINE POSITIVE (NEGATIVE); CANNABINOIDS URINE POSITIVE (NEGATIVE); COCAINE METABOLITE URINE POSITIVE (NEGATIVE); PHENCYCLIDINE URINE POSITIVE (NEGATIVE)
[2022-11-02 18:01] LABS: ALBUMIN 4.3 G/DL (3.2-5.2); ALKALINE PHOSPHATASE 125 U/L (46-116); ALT/SGPT 22 U/L (7.0-40); AST/SGOT 28 U/L (<34); BILIRUBIN,TOTAL 0.2 MG/DL (0.3-1.2); BLOOD UREA NITROGEN 22 MG/DL (9-23); CARBON DIOXIDE LEVEL 24 MMOL/L (20-31); CHLORIDE LEVEL 100 MMOL/L (98-107); CPK CREATINE PHOSPHOKINASE 283 U/L (46-171); CREATININE FOR GFR 1.88 MG/DL (0.70-1.30); GLOMERULAR FILTRATION RATE 42.5 (>60); GLUCOSE, FASTING 124 MG/DL (60-100); POTASSIUM SERUM 4.7 MMOL/L (3.5-5.1); SODIUM LEVEL 138 MMOL/L (136-145); TOTAL PROTEIN 7.9 G/DL (5.7-8.2)
[2022-11-02] MEDS ORDERED: ETOMIDATE INJ 20MG/10ML VIAL IV STA (18:16)
[2022-11-02] MEDS ORDERED: SUCCINYLCHOLINE INJ 200MG/10ML VIAL IV STA (18:16)
[2022-11-02 18:21] LABS: THYROID STIMULATING HORMONE 3.151 uIU/ML (0.55-4.78)
[2022-11-02] MEDS ORDERED: MIDAZOLAM INJ 2MG/2ML VIAL (J2250 PER 1MG) IV STA (18:27)
[2022-11-02] MEDS ORDERED: MED REC COMMENT (19:11)
[2022-11-02 19:35] LABS: RSV AMPLIFICATION NEGATIVE (NEGATIVE)
[2022-11-02] MEDS ORDERED: ARIP1TAB4 PO (19:40)
[2022-11-02] MEDS ORDERED: LEXA1TAB PO (19:40)
[2022-11-02] MEDS ORDERED: PROP20TA GT (19:40)
[2022-11-02] MEDS ORDERED: TRAZ-252 PO ×2 (19:40)
[2022-11-02] MEDS ORDERED: LEXA5TAB13 PO (19:40)
[2022-11-02] MEDS ORDERED: HOME MED LIST COMPLETE! XX SCH ×2 (19:45→21:15)
[2022-11-02] MEDS ORDERED: NS 1,000 ML IV SCH (20:35)
[2022-11-02] MEDS: CHLORHEXIDINE GLUCONATE 0.12 % 15ML UDC (PERIDEX ORAL RINSE) MT SCH (21:00)
[2022-11-02] MEDS: MIDAZOLAM 100MG/100ML-0.9%NACL 100 MG in IV 1 EA IV SCH (21:27)
[2022-11-02 22:05] LABS: ABG pH (ARTERIAL) 7.313 UNITS (7.350-7.450)
[2022-11-02 22:06] LABS: ABG BASE EXCESS -2.6 (-2.0-2.0); ABG PARTIAL PRESSURE CO2 48.4 mmHg (35.0-45.0); ABG PARTIAL PRESSURE O2 79.8 mmHg (75.0-100.0); ABG STANDARD HCO3 22.3 MEQ/L (22.0-26.0); ABG TOTAL CO2 25.5 MEQ/L (22.0-29.0)
[2022-11-02 22:21] LABS: MAGNESIUM LEVEL 1.6 MG/DL (1.8-2.4)
[2022-11-02 22:25] LABS: ALBUMIN 3.4 G/DL (3.2-5.2); BILIRUBIN,TOTAL 0.8 MG/DL (0.3-1.2); CALCIUM LEVEL 8.8 MG/DL (8.5-10.1); CREATININE FOR GFR 1.67 MG/DL (0.70-1.30); GLOMERULAR FILTRATION RATE 48.8 (>60); PHOSPHORUS LEVEL 4.9 MG/DL (2.5-4.9); POTASSIUM SERUM 4.9 MMOL/L (3.5-5.1); TOTAL PROTEIN 6.4 G/DL (5.7-8.2)
[2022-11-02] MEDS: HEPARIN SOD (PORCINE) 5000UNITS/ML 1ML VIAL/SYRINGE SC SCH (22:34)
[2022-11-02] MEDS ORDERED: DEXTROSE 50% 50 ML SYRINGE IV STA (23:39)
[2022-11-03] VITALS (39 sets, daily range): BP systolic 95–124; BP diastolic 53–75
[2022-11-03] MEDS: D5W/0.45% SODIUM CHLORIDE 1,000 ML IV SCH ×2 (00:06→14:20)
[2022-11-03] MEDS: MAG SULF 1GM/100ML (MAG RUN) 1 GM in IV 1 EA IV SCH ×2 (00:06→01:08)
[2022-11-03] MEDS: levETIRAcetam INJection 750 MG in D5W 100 ML IV SCH ×2 (00:21→12:16)
[2022-11-03] MEDS: PIPERACILLIN/TAZOBACTAM SOD 4.5 GM in D5W MINI-BAG PLUS 50 ML IV SCH ×5 (00:42→23:31)
[2022-11-03] MEDS: ALBUTEROL SULFATE 2.5 MG/0.5 ML INH NEB SOLN NEB SCH ×6 (00:54→19:31)
[2022-11-03] MEDS: propofoL 1,000 MG in IV 1 EA IV SCH ×4 (01:55→21:38)
[2022-11-03 05:55] LABS: ABG BASE EXCESS -1.7 (-2.0-2.0); ABG HCO3 24.5 MEQ/L (22.0-26.0); ABG O2 SATURATION 92.2 % (95.0-99.0); ABG PARTIAL PRESSURE CO2 47.4 mmHg (35.0-45.0); ABG PARTIAL PRESSURE O2 64.7 mmHg (75.0-100.0); ABG pH (ARTERIAL) 7.332 UNITS (7.350-7.450)
[2022-11-03 06:01] LABS: ALBUMIN 2.8 G/DL (3.2-5.2); ALKALINE PHOSPHATASE 72 U/L (46-116); ALT/SGPT 15 U/L (7.0-40); AST/SGOT 21 U/L (<34); BILIRUBIN,TOTAL 0.6 MG/DL (0.3-1.2); BLOOD UREA NITROGEN 22 MG/DL (9-23); CALCIUM LEVEL 8.1 MG/DL (8.5-10.1); CARBON DIOXIDE LEVEL 26 MMOL/L (20-31); CHLORIDE LEVEL 104 MMOL/L (98-107); GLOMERULAR FILTRATION RATE > 60.0 (>60); GLUCOSE, FASTING 99 MG/DL (60-100); PHOSPHORUS LEVEL 3.9 MG/DL (2.5-4.9); POTASSIUM SERUM 4.3 MMOL/L (3.5-5.1); SODIUM LEVEL 138 MMOL/L (136-145); TOTAL PROTEIN 5.3 G/DL (5.7-8.2)
[2022-11-03] MEDS: HEPARIN SOD (PORCINE) 5000UNITS/ML 1ML VIAL/SYRINGE SC SCH ×3 (06:16→21:35)
[2022-11-03] MEDS: PANTOPRAZOLE 40MG VIAL IV SCH (07:41)
[2022-11-03] MEDS: CHLORHEXIDINE GLUCONATE 0.12 % 15ML UDC (PERIDEX ORAL RINSE) MT SCH ×2 (07:41→20:43)
[2022-11-03 08:09] LABS: HEMATOCRIT 36.7 % (42.0-52.0); MEAN CORPUSCULAR HEMOGLOBIN 31.2 pg (27.0-33.0); MEAN CORPUSCULAR HGB CONC 31.9 g/dl (32.0-36.5); MEAN CORPUSCULAR VOLUME 97.9 fl (80.0-96.0); RED BLOOD COUNT 3.75 10^6/uL (4.30-6.10); WHITE BLOOD COUNT 12.1 10^3/uL (4.0-10.0)
[2022-11-03 08:18] LABS: HEMOGLOBIN 11.7 g/dl (13.5-17.5)
[2022-11-03 08:19] LABS: PLATELET COUNT, AUTOMATED 207 10^3/uL (150-450)
[2022-11-03 15:29] LABS: HEPATITIS B SURFACE ANTIGEN NEGATIVE (NEGATIVE)
[2022-11-03 15:42] LABS: HIV 1&2 SCREEN CENTAUR NEGATIVE (NEGATIVE)
[2022-11-03] MEDS ORDERED: fentaNYL 100 MCG/2 ML INJECTION IV PRN (18:00)
[2022-11-03] MEDS: MIDAZOLAM 100MG/100ML-0.9%NACL 100 MG in IV 1 EA IV SCH (18:05)
[2022-11-03] MEDS ORDERED: SUCCINYLCHOLINE 100 MG/5 ML SYRINGE (J0330) ONE (20:07)
[2022-11-03 20:36] LABS: HEPATITIS C VIRUS ABY INDEX > 11.0 INDEX (<0.8)
[2022-11-03] MEDS ORDERED: ACETAMINOPHEN 1000MG 100ML IV BAG IV ONE (21:15)
[2022-11-04] VITALS (27 sets, daily range): BP systolic 110–172; BP diastolic 57–105
[2022-11-04] MEDS: levETIRAcetam INJection 750 MG in D5W 100 ML IV SCH ×3 (00:05→23:52)
[2022-11-04] MEDS: ALBUTEROL SULFATE 2.5 MG/0.5 ML INH NEB SOLN NEB SCH ×7 (00:21→23:48)
[2022-11-04] MEDS: propofoL 1,000 MG in IV 1 EA IV SCH (04:33)
[2022-11-04] MEDS: PIPERACILLIN/TAZOBACTAM SOD 4.5 GM in D5W MINI-BAG PLUS 50 ML IV SCH ×3 (05:11→18:13)
[2022-11-04] MEDS: HEPARIN SOD (PORCINE) 5000UNITS/ML 1ML VIAL/SYRINGE SC SCH ×4 (05:11→21:29)
[2022-11-04 05:14] LABS: ABG BASE EXCESS 1.8 (-2.0-2.0); ABG HCO3 26.4 MEQ/L (22.0-26.0); ABG PARTIAL PRESSURE O2 71.5 mmHg (75.0-100.0); ABG STANDARD HCO3 26.1 MEQ/L (22.0-26.0); ABG TOTAL CO2 27.6 MEQ/L (22.0-29.0); ABG pH (ARTERIAL) 7.426 UNITS (7.350-7.450)
[2022-11-04 05:26] LABS: HEMATOCRIT 33.6 % (42.0-52.0); HEMOGLOBIN 10.8 g/dl (13.5-17.5); MEAN CORPUSCULAR HEMOGLOBIN 31.5 pg (27.0-33.0); MEAN CORPUSCULAR HGB CONC 32.1 g/dl (32.0-36.5); PLATELET COUNT, AUTOMATED 182 10^3/uL (150-450); RED BLOOD COUNT 3.43 10^6/uL (4.30-6.10); WHITE BLOOD COUNT 8.7 10^3/uL (4.0-10.0)
[2022-11-04 05:54] LABS: ALBUMIN 2.4 G/DL (3.2-5.2); ALKALINE PHOSPHATASE 78 U/L (46-116); ALT/SGPT 17 U/L (7.0-40); AST/SGOT 24 U/L (<34); BILIRUBIN,TOTAL 0.7 MG/DL (0.3-1.2); BLOOD UREA NITROGEN 14 MG/DL (9-23); CARBON DIOXIDE LEVEL 29 MMOL/L (20-31); CHLORIDE LEVEL 103 MMOL/L (98-107); CREATININE FOR GFR 0.97 MG/DL (0.70-1.30); GLOMERULAR FILTRATION RATE > 60.0 (>60); GLUCOSE, FASTING 130 MG/DL (60-100); PHOSPHORUS LEVEL 1.8 MG/DL (2.5-4.9); POTASSIUM SERUM 4.1 MMOL/L (3.5-5.1); SODIUM LEVEL 138 MMOL/L (136-145); TOTAL PROTEIN 5.2 G/DL (5.7-8.2)
[2022-11-04] MEDS ORDERED: K-PHOS NEUTRAL 250MG TABLET (SOD.PHOSPHATE/POT.PHOSPHATE) GT ONE (09:00)
[2022-11-04] MEDS: PANTOPRAZOLE 40MG VIAL IV SCH (09:09)
[2022-11-04] MEDS: CHLORHEXIDINE GLUCONATE 0.12 % 15ML UDC (PERIDEX ORAL RINSE) MT SCH (09:09)
[2022-11-04] MEDS ORDERED: LIDOCAINE 1% MDV 20ML VIAL As Ordered ONE (14:10)
[2022-11-04 15:09] LABS: HEPATITIS B CORE ANTIBODY IGG Negative (Negative); HEPATITIS C QUANTITATION HCV Not Detected IU/mL (.)
[2022-11-04] MEDS: SODIUM CHLORIDE HYPERTONIC 3% 15ML NEB SOL INH SCH ×3 (16:03→23:48)
[2022-11-04] MEDS: NS 1,000 ML IV SCH (16:49)
[2022-11-04] MEDS ORDERED: K-PHOS NEUTRAL 250MG TABLET (SOD.PHOSPHATE/POT.PHOSPHATE) PO ONE (18:00)
[2022-11-04] MEDS ORDERED: ARIPiprazole 2 MG TAB PO SCH (21:00)
[2022-11-04] MEDS ORDERED: GABAPENTIN 300 MG CAP PO SCH (21:00)
[2022-11-04] MEDS ORDERED: traZODone 50 MG TAB PO SCH (21:00)
[2022-11-04] MEDS ORDERED: CHLORASEPTIC SPRAY MT PRN (23:35)
[2022-11-04] MEDS ORDERED: cloNIDine 0.1MG TABLET PO PRN (23:35)
[2022-11-05] VITALS (14 sets, daily range): BP systolic 122–152; BP diastolic 82–100
[2022-11-05] MEDS: PIPERACILLIN/TAZOBACTAM SOD 4.5 GM in D5W MINI-BAG PLUS 50 ML IV SCH ×2 (00:27→05:27)
[2022-11-05] MEDS ORDERED: FUROSEMIDE 40MG/4ML VIAL (J1940) IV STA (01:09)
[2022-11-05] MEDS ORDERED: RAMELTEON 8 MG TAB (ROZEREM) PO SCH (02:50)
[2022-11-05] MEDS: NS 1,000 ML IV SCH (04:30)
[2022-11-05] MEDS: ALBUTEROL SULFATE 2.5 MG/0.5 ML INH NEB SOLN NEB SCH ×4 (05:06→13:26)
[2022-11-05] MEDS: SODIUM CHLORIDE HYPERTONIC 3% 15ML NEB SOL INH SCH ×4 (05:06→13:25)
[2022-11-05] MEDS: HEPARIN SOD (PORCINE) 5000UNITS/ML 1ML VIAL/SYRINGE SC SCH ×2 (05:17→15:22)
[2022-11-05] MEDS ORDERED: ESCITALOPRAM OXALATE 5MG TABLET (LEXAPRO) PO SCH (09:00)
[2022-11-05] MEDS ORDERED: ESCITALOPRAM OXALATE 10 MG TAB (LEXAPRO) PO SCH (09:00)
[2022-11-05] MEDS ORDERED: lisinopriL 40MG TAB PO SCH (09:00)
[2022-11-05] MEDS: PANTOPRAZOLE 40MG VIAL IV SCH (09:00)
[2022-11-05] MEDS ORDERED: VITAMIN D 1,000 INTERNATIONAL UNITS TABLET PO SCH (09:00)
[2022-11-05] MEDS ORDERED: GABAPENTIN 300 MG CAP PO SCH (14:00)
[2022-11-05] MEDS ORDERED: levETIRAcetam 250MG TABLET (KEPPRA) PO SCH (14:00)
[2022-11-05] MEDS ORDERED: cloNIDine 0.1MG TABLET PO PRN (14:30)
[2022-11-05] MEDS ORDERED: PROP20TA72 PO (14:54)
[2022-11-05] MEDS ORDERED: GABA-282 PO (14:54)
[2022-11-05] MEDS ORDERED: ARIP1TAB4 PO (14:54)
[2022-11-05] MEDS ORDERED: SENN-111 PO (14:54)
[2022-11-05] MEDS ORDERED: PRAZ2CAP PO (14:54)
[2022-11-05] MEDS ORDERED: LISI40TA4 PO (14:54)
[2022-11-05] MEDS ORDERED: NICO14DI24 TD (14:54)
[2022-11-05] MEDS ORDERED: AMLO1TAB25 PO (14:54)
[2022-11-05] MEDS ORDERED: OMEP-173 PO (14:54)
[2022-11-05] MEDS ORDERED: VITA100093 PO (14:54)
[2022-11-05] MEDS ORDERED: LEXA5TAB13 PO (14:54)
[2022-11-05] MEDS ORDERED: TRAZ-252 PO ×2 (14:54)
[2022-11-05] MEDS ORDERED: LEVE750T5 PO (14:54)
[2022-11-05] MEDS ORDERED: LEXA1TAB PO (14:55)
[2022-11-05] MEDS ORDERED: LevoFLOXacin 750 MG TABLET PO SCH (16:00)
[2022-11-05] MEDS ORDERED: PRAZOSIN 1 MG CAP PO SCH (16:00)
[2022-11-05] MEDS ORDERED: LEVO1TAB40 PO (17:21)
[2022-11-05] MEDS ORDERED: traZODone 50 MG TAB PO SCH (21:00)
== END 2022-11-05 17:30 | disposition left against medical advice (07) | DRG 816 ==
LOC: EDBD 16:09 → M ED 16:09 → M ED INP 20:35 → ENRESERV 21:55 → M ICU 22:15
PROVIDERS: ADMIT Internal Medicine; ATTEND Internal Medicine
PROC: 0BH17EZ Insertion of Endotracheal Airway into Trachea, Via Natural or Artificial Opening (ICD-10-PCS; principal; 2022-11-02)
PROC: 5A1945Z Respiratory Ventilation, 24-96 Consecutive Hours (ICD-10-PCS; 2022-11-02)
DX: T40.1X1A Poisoning by heroin, accidental (unintentional), initial encounter (principal); J69.0 Pneumonitis due to inhalation of food and vomit; J96.01 Acute respiratory failure with hypoxia; J96.02 Acute respiratory failure with hypercapnia; A41.9 Sepsis, unspecified organism; N17.9 Acute kidney failure, unspecified; E87.20 Acidosis, unspecified; E83.42 Hypomagnesemia; G40.909 Epilepsy, unspecified, not intractable, without status epilepticus; K44.9 Diaphragmatic hernia without obstruction or gangrene; E16.2 Hypoglycemia, unspecified; Z79.899 Other long term (current) drug therapy; Z20.822 Contact with and (suspected) exposure to COVID-19; R82.998 Other abnormal findings in urine; F19.90 Other psychoactive substance use, unspecified, uncomplicated; F32.A Depression, unspecified

== ENCOUNTER → 2022-11-18 | Outpatient (REF) | payer OTHER ==
[~2022-11-18] MED LIST changes: +ARIP1TAB4 PO; +LEVO1TAB40 PO; +MED REC COMMENT; +NICO14DI24 TD; +PROP20TA GT; +PROP20TA72 PO; +SENN-111 PO
== END ==
LOC: M LAB REF 13:16
PROVIDERS: ATTEND Nurse Practitioner Family
DX: R10.9 Unspecified abdominal pain (principal); R19.4 Change in bowel habit; R12 Heartburn

== ENCOUNTER → 2022-12-22 | Outpatient (CLI) | payer OTHER | LOC: M LABSMTC 09:59 | PROVIDERS: ATTEND Anesthesiology | DX: Z01.818 Encounter for other preprocedural examination (principal) ==

== ENCOUNTER 2022-12-26 10:00 | Day surgery (SDC) | payer OTHER ==
[~2022-12-26] VITALS: Ht 170.2 cm; Wt 92.9 kg
[~2022-12-26 10:00] MED LIST changes: +NS 1,000 ML IV ONE
[2022-12-26] MEDS ORDERED: LIDOCAINE 2% 100MG/5ML SDV (FOR ANES.) As Ordered ONE (10:31)
[2022-12-26] MEDS ORDERED: propofoL 200 MG/20 ML VIAL As Ordered ONE (10:31)
[2022-12-26] MEDS ORDERED: GLYCOPYRROLATE INJ 0.2 MG/ML 2 ML VIAL As Ordered ONE (11:04)
[2022-12-26 11:45] VITALS: BP 160/90
== END 2022-12-26 11:55 | disposition home or self-care (01) ==
LOC: M OPP 10:00
PROVIDERS: ATTEND Internal Medicine Gastroenterology
DX: K64.4 Residual hemorrhoidal skin tags (principal); K64.8 Other hemorrhoids; K52.9 Noninfective gastroenteritis and colitis, unspecified; K44.9 Diaphragmatic hernia without obstruction or gangrene; K29.70 Gastritis, unspecified, without bleeding; Z79.2 Long term (current) use of antibiotics; Z79.899 Other long term (current) drug therapy; I10 Essential (primary) hypertension; E78.00 Pure hypercholesterolemia, unspecified; B19.20 Unspecified viral hepatitis C without hepatic coma; F17.200 Nicotine dependence, unspecified, uncomplicated; Z86.69 Personal history of other diseases of the nervous system and sense organs; Z86.73 Personal history of transient ischemic attack (TIA), and cerebral infarction without residual deficits; Z87.19 Personal history of other diseases of the digestive system

== ENCOUNTER → 2023-02-11 | Outpatient (REF) ==
[~2023-02-11] MED LIST changes: -NS 1,000 ML IV ONE
== END ==
LOC: M PLAIMG 10:17
PROVIDERS: ATTEND Internal Medicine
DX: R52 Pain, unspecified (principal)

== ENCOUNTER 2023-03-12 12:07 | Emergency (ER) | payer OTHER ==
[~2023-03-12] VITALS: Ht 170.2 cm; Wt 92.4 kg
[~2023-03-12 12:07] MED LIST changes: -SENN-111 PO; +SENN-188 PO
[2023-03-12 12:08] VITALS: BP 150/85
[2023-03-12 13:21] LABS: BASO % 0.7 % (0.0-1.0); EOS # 0.3 10^3/uL (0.0-0.5); EOS % 4.5 % (0.0-3.0); HEMATOCRIT 44.1 % (42.0-52.0); HEMOGLOBIN 14.3 g/dl (13.5-17.5); LYMPH # 1.9 10^3/uL (1.5-5.0); LYMPH % 33.6 % (24.0-44.0); MEAN CORPUSCULAR HEMOGLOBIN 30.5 pg (27.0-33.0); MEAN CORPUSCULAR HGB CONC 32.4 g/dl (32.0-36.5); MONO # 0.4 10^3/uL (0.0-0.8); MONO % 7.2 % (2.0-8.0); NEUTROPHILS % 53.5 % (36.0-66.0); PLATELET COUNT, AUTOMATED 307 10^3/uL (150-450); RED BLOOD COUNT 4.69 10^6/uL (4.30-6.10); WHITE BLOOD COUNT 5.5 10^3/uL (4.0-10.0)
[2023-03-12 13:41] LABS: INR 0.88; PROTHROMBIN TIME 12.1 SECONDS (12.5-14.5)
[2023-03-12 13:42] LABS: PARTIAL THROMBOPLASTIN TIME 27.8 SECONDS (24.8-34.2)
[2023-03-12 13:47] LABS: ALBUMIN 3.6 G/DL (3.2-5.2); ALKALINE PHOSPHATASE 96 U/L (46-116); ALT/SGPT 28 U/L (7.0-40); AST/SGOT 16 U/L (<34); BILIRUBIN,DIRECT 0.1 MG/DL (<0.4); BILIRUBIN,TOTAL 0.3 MG/DL (0.3-1.2); BLOOD UREA NITROGEN 16 MG/DL (9-23); CALCIUM LEVEL 9.6 MG/DL (8.5-10.1); CARBON DIOXIDE LEVEL 30 MMOL/L (20-31); CHLORIDE LEVEL 105 MMOL/L (98-107); CREATININE FOR GFR 0.82 MG/DL (0.70-1.30); GLOMERULAR FILTRATION RATE > 60.0 (>60); GLUCOSE, FASTING 92 MG/DL (60-100); POTASSIUM SERUM 4.5 MMOL/L (3.5-5.1); SODIUM LEVEL 140 MMOL/L (136-145)
[2023-03-12 13:57] LABS: RSV AMPLIFICATION NEGATIVE (NEGATIVE)
[2023-03-12 14:26] LABS: ERYTHROCYTE SEDIMENTATION RATE 56 mm/hr (0-15)
[2023-03-12] MEDS ORDERED: LIDOCAINE 1% MDV 20ML VIAL SC ONE ×2 (15:25→15:45)
[2023-03-12] MEDS ORDERED: DALBAVANCIN 1,500 MG in D5W 250 ML IV ONE (15:30)
== END 2023-03-12 17:48 | disposition home or self-care (01) ==
LOC: M ED 12:07
DX: L03.114 Cellulitis of left upper limb (principal); L03.113 Cellulitis of right upper limb; M71.032 Abscess of bursa, left wrist; I10 Essential (primary) hypertension; K21.9 Gastro-esophageal reflux disease without esophagitis; G40.89 Other seizures; Z86.79 Personal history of other diseases of the circulatory system; Z87.820 Personal history of traumatic brain injury; Z79.811 Long term (current) use of aromatase inhibitors; Z79.83 Long term (current) use of bisphosphonates; Z79.891 Long term (current) use of opiate analgesic; Z79.899 Other long term (current) drug therapy
CPT/HCPCS: 76882; 80048; 80076; 83605; 85025; 85610; 85652; 85730; 86140; 87040; 87070; 87076; 87631; 96374; 99283; J0875

== ENCOUNTER 2023-10-08 10:03 | Emergency (ER) | payer OTHER ==
[2023-10-08 10:13] VITALS: TEMP 97
[2023-10-08 10:34] VITALS: BP 137/90; O2SAT 96
[2023-10-08 11:21] LABS: BASO % 0.3 % (0.0-1.0); EOS % 0.1 % (0.0-3.0); HEMOGLOBIN 14.9 g/dl (13.5-17.5); LYMPH # 0.9 10^3/uL (1.5-5.0); LYMPH % 6.1 % (24.0-44.0); MEAN CORPUSCULAR HEMOGLOBIN 31.3 pg (27.0-33.0); MEAN CORPUSCULAR HGB CONC 33.9 g/dl (32.0-36.5); MEAN CORPUSCULAR VOLUME 92.4 fl (80.0-96.0); MONO # 1.3 10^3/uL (0.0-0.8); MONO % 8.6 % (2.0-8.0); NEUTROPHILS # 12.4 10^3/uL (1.5-8.5); NEUTROPHILS % 84.1 % (36.0-66.0); PLATELET COUNT, AUTOMATED 386 10^3/uL (150-450); RED BLOOD COUNT 4.76 10^6/uL (4.30-6.10); WHITE BLOOD COUNT 14.8 10^3/uL (4.0-10.0)
[2023-10-08 11:39] LABS: VENOUS BASE EXCESS -7.6 (-2.0-2.0); VENOUS HCO3 20.4 MMOL/L (23.0-27.0); VENOUS O2 SATURATION 90.4 % (60.0-80.0); VENOUS PARTIAL PRESSURE CO2 50.2 mmHg (38.0-50.0); VENOUS PARTIAL PRESSURE O2 67.7 mmHg (30.0-50.0); VENOUS PH 7.226 UNITS (7.330-7.430); VENOUS STANDARD HCO3 18.3 MMOL/L; VENOUS TOTAL CO2 21.9 MMOL/L (24.0-28.0)
[2023-10-08 11:44] LABS: OSMOLALITY SERUM 313 MOSM/KG (275-295)
[2023-10-08 11:45] LABS: ETHYL ALCOHOL (ETHANOL) < 0.003 % (0.000-0.010)
[2023-10-08 11:47] LABS: ALKALINE PHOSPHATASE 96 U/L (46-116); ALT/SGPT 135 U/L (7.0-40); AST/SGOT 311 U/L (<34); BILIRUBIN,DIRECT 0.3 MG/DL (<0.4); BILIRUBIN,TOTAL 0.8 MG/DL (0.3-1.2); BLOOD UREA NITROGEN 64 MG/DL (9-23); CALCIUM LEVEL 10.3 MG/DL (8.5-10.1); CARBON DIOXIDE LEVEL 22 MMOL/L (20-31); CHLORIDE LEVEL 96 MMOL/L (98-107); CREATININE FOR GFR 6.34 MG/DL (0.70-1.30); GLOMERULAR FILTRATION RATE 10.4 (>60); GLUCOSE, FASTING 80 MG/DL (60-100); POTASSIUM SERUM 4.9 MMOL/L (3.5-5.1); SALICYLATE LEVEL < 3.0 MG/DL (<30); SODIUM LEVEL 135 MMOL/L (136-145); TOTAL PROTEIN 7.5 G/DL (5.7-8.2)
[2023-10-08 11:49] LABS: THYROID STIMULATING HORMONE 2.858 uIU/ML (0.55-4.78)
== END 2023-10-08 11:10 | disposition left against medical advice (07) ==
LOC: EDBD 10:03 → M ED 10:03
DX: N17.9 Acute kidney failure, unspecified (principal); G40.909 Epilepsy, unspecified, not intractable, without status epilepticus; F10.10 Alcohol abuse, uncomplicated; F12.10 Cannabis abuse, uncomplicated; Z79.83 Long term (current) use of bisphosphonates; Z79.811 Long term (current) use of aromatase inhibitors; Z79.899 Other long term (current) drug therapy; Z53.9 Procedure and treatment not carried out, unspecified reason

== ENCOUNTER 2023-10-13 11:03 | Observation (INO) | payer OTHER ==
[~2023-10-13] VITALS: Ht 170.2 cm; Wt 90.0 kg
[2023-10-13] MEDS ORDERED: DOXYCYCLINE HYCLATE 100MG TABLET PO ONE (15:20)
[2023-10-13] MEDS ORDERED: lisinopriL 40MG TAB PO ONE (15:35)
[2023-10-13] MEDS ORDERED: traZODone 50 MG TAB PO ONE (15:35)
[2023-10-13] MEDS ORDERED: KETOROLAC 60MG 2ML VIAL IM ONE (15:35)
[2023-10-13] MEDS ORDERED: ESCITALOPRAM OXALATE 10 MG TAB (LEXAPRO) PO ONE (15:35)
[2023-10-13] MEDS ORDERED: GABAPENTIN 300 MG CAP PO ONE (15:35)
[2023-10-13] MEDS ORDERED: levETIRAcetam 250MG TABLET (KEPPRA) PO ONE ×2 (15:35→16:25)
[2023-10-13] MEDS ORDERED: PROPRANOLOL 20 MG TAB PO ONE (15:35)
[2023-10-13 15:57] LABS: BASO % 0.2 % (0.0-1.0); EOS % 0.2 % (0.0-3.0); HEMATOCRIT 41.9 % (42.0-52.0); HEMOGLOBIN 14.5 g/dl (13.5-17.5); LYMPH # 0.8 10^3/uL (1.5-5.0); LYMPH % 4.9 % (24.0-44.0); MEAN CORPUSCULAR HEMOGLOBIN 31.4 pg (27.0-33.0); MEAN CORPUSCULAR HGB CONC 34.6 g/dl (32.0-36.5); MEAN CORPUSCULAR VOLUME 90.7 fl (80.0-96.0); MONO # 1.3 10^3/uL (0.0-0.8); MONO % 8.2 % (2.0-8.0); NEUTROPHILS # 13.9 10^3/uL (1.5-8.5); NEUTROPHILS % 85.6 % (36.0-66.0); PLATELET COUNT, AUTOMATED 411 10^3/uL (150-450); RED BLOOD COUNT 4.62 10^6/uL (4.30-6.10); WHITE BLOOD COUNT 16.2 10^3/uL (4.0-10.0)
[2023-10-13] MEDS ORDERED: LEXA1TAB2 PO (16:06)
[2023-10-13] MEDS ORDERED: TRAZ-257 PO (16:10)
[2023-10-13] MEDS ORDERED: KETOROLAC 30 MG/ML 1ML VIAL IV ONE (16:10)
[2023-10-13] MEDS ORDERED: LEVE10003 PO (16:13)
[2023-10-13 16:15] LABS: ERYTHROCYTE SEDIMENTATION RATE > 130 mm/hr (0-15)
[2023-10-13 16:25] LABS: C REACTIVE PROTEIN QUANTITATIV 22.8 MG/DL (<1.0); ETHYL ALCOHOL (ETHANOL) 0.004 % (0.000-0.010)
[2023-10-13 16:27] LABS: CALCIUM LEVEL 9.5 MG/DL (8.5-10.1); CREATININE FOR GFR 2.58 MG/DL (0.70-1.30); GLOMERULAR FILTRATION RATE 29.4 (>60); POTASSIUM SERUM 5.3 MMOL/L (3.5-5.1)
[2023-10-13] MEDS ORDERED: NS 2,450 ML in IV 1 EA IV ONE (17:35)
[2023-10-13 18:04] LABS: BARBITURATES URINE NEGATIVE (NEGATIVE); BENZODIAZEPINES URINE NEGATIVE (NEGATIVE); PHENCYCLIDINE URINE NEGATIVE (NEGATIVE)
[2023-10-13 18:05] LABS: METHADONE URINE NEGATIVE (NEGATIVE); OPIATES URINE NEGATIVE (NEGATIVE)
[2023-10-13 18:06] LABS: AMPHETAMINES LEVEL URINE POSITIVE (NEGATIVE); CANNABINOIDS URINE POSITIVE (NEGATIVE); COCAINE METABOLITE URINE POSITIVE (NEGATIVE)
[2023-10-13] MEDS ORDERED: IPRATROPIUM 0.5MG/ALBUTEROL 2.5MG INH SOL UD 3ML (DUONEB) NEB ONE (18:35)
[2023-10-13 18:37] LABS: VENOUS HCO3 20.6 MMOL/L (23.0-27.0); VENOUS O2 SATURATION 97.1 % (60.0-80.0); VENOUS PARTIAL PRESSURE CO2 36.4 mmHg (38.0-50.0); VENOUS PARTIAL PRESSURE O2 101.7 mmHg (30.0-50.0); VENOUS STANDARD HCO3 21.2 MMOL/L; VENOUS TOTAL CO2 21.7 MMOL/L (24.0-28.0)
[2023-10-13 18:38] LABS: ALBUMIN 2.8 G/DL (3.2-5.2); BILIRUBIN,DIRECT 0.3 MG/DL (<0.4); BILIRUBIN,TOTAL 0.7 MG/DL (0.3-1.2); TOTAL PROTEIN 6.9 G/DL (5.7-8.2)
[2023-10-13] MEDS ORDERED: ACETAMINOPHEN TAB 650MG DOSE (2X325MG) PO PRN (18:40)
[2023-10-13] MEDS ORDERED: MOM 30ML SUSPENSION UDC PO PRN (18:40)
[2023-10-13] MEDS ORDERED: VANCOMYCIN HCL 1,200 MG in IV FLUID PLACE HOLDER 1 EA IV SCH (19:05)
[2023-10-13] MEDS ORDERED: PATIROMER SORBITEX CALCIUM 8.4 GM POWDER PACKET (VELTASSA) PO ONE (19:10)
[2023-10-13] MEDS ORDERED: LORazepam 2 MG TAB PO PRN (19:10)
[2023-10-13] MEDS ORDERED: MED REC IN PROGRESS XX SCH (19:40)
[2023-10-13 20:02] LABS: PROCALCITONIN 1.5 ng/ml
[2023-10-13] MEDS: LORazepam 1 MG TAB PO PRN (20:15)
[2023-10-13 20:20] LABS: INR 1.28; PROTHROMBIN TIME 15.6 SECONDS (12.5-14.5)
[2023-10-13] MEDS: DOCUSATE SODIUM 100MG CAPSULE PO SCH (21:00)
[2023-10-13] MEDS ORDERED: cloNIDine 0.1MG TABLET PO SCH (21:00)
[2023-10-13] MEDS: THIAMINE 100 MG TAB PO SCH (21:00)
[2023-10-13] MEDS: METHADONE 10MG TAB PO SCH (21:00)
[2023-10-13] MEDS: LR 1,000 ML IV SCH (21:41)
[2023-10-13] MEDS: HEPARIN SOD (PORCINE) 5000UNITS/ML 1ML VIAL/SYRINGE SC SCH (22:00)
[2023-10-13] MEDS: VANCOMYCIN HCL 1,000 MG, VIAL MATE ADAPTER 1 EACH in D5W 250 ML IV SCH (22:27)
[2023-10-13] MEDS ORDERED: RIME75TA PO (22:32)
[2023-10-13] MEDS ORDERED: AMIT10TA7 PO (22:32)
[2023-10-13] MEDS ORDERED: HOME MED LIST COMPLETE! XX SCH (22:40)
[2023-10-13] MEDS ORDERED: ACETAMINOPHEN 500 MG TAB PO PRN (22:50)
[2023-10-13] MEDS ORDERED: VANCOMYCIN HCL 1,000 MG, VIAL MATE ADAPTER 1 EACH in D5W 250 ML IV ONE (23:00)
[2023-10-14 06:05] LABS: BASO % 0.2 % (0.0-1.0); EOS % 0.3 % (0.0-3.0); HEMATOCRIT 38.8 % (42.0-52.0); HEMOGLOBIN 12.8 g/dl (13.5-17.5); LYMPH # 0.8 10^3/uL (1.5-5.0); LYMPH % 6.2 % (24.0-44.0); MEAN CORPUSCULAR HEMOGLOBIN 30.8 pg (27.0-33.0); MEAN CORPUSCULAR VOLUME 93.3 fl (80.0-96.0); MONO # 1.1 10^3/uL (0.0-0.8); MONO % 8.9 % (2.0-8.0); NEUTROPHILS # 10.5 10^3/uL (1.5-8.5); NEUTROPHILS % 83.4 % (36.0-66.0); PLATELET COUNT, AUTOMATED 332 10^3/uL (150-450); RED BLOOD COUNT 4.16 10^6/uL (4.30-6.10); WHITE BLOOD COUNT 12.6 10^3/uL (4.0-10.0)
[2023-10-14] MEDS: levETIRAcetam 250MG TABLET (KEPPRA) PO SCH ×2 (06:33→19:42)
[2023-10-14 06:35] LABS: CALCIUM LEVEL 9.1 MG/DL (8.5-10.1); CREATININE FOR GFR 1.55 MG/DL (0.70-1.30); GLOMERULAR FILTRATION RATE 52.9 (>60); POTASSIUM SERUM 5.6 MMOL/L (3.5-5.1)
[2023-10-14] MEDS: HEPARIN SOD (PORCINE) 5000UNITS/ML 1ML VIAL/SYRINGE SC SCH ×4 (06:38→21:18)
[2023-10-14] MEDS: LORazepam 1 MG TAB PO PRN ×2 (06:51→23:45)
[2023-10-14] MEDS ORDERED: GABAPENTIN 300 MG CAP PO PRN (07:05)
[2023-10-14] MEDS ORDERED: PATIROMER SORBITEX CALCIUM 8.4 GM POWDER PACKET (VELTASSA) PO ONE (07:10)
[2023-10-14] MEDS: LR 1,000 ML IV SCH ×3 (08:15→19:39)
[2023-10-14] MEDS: SENNA 8.6 MG TAB (SENOKOT) PO SCH ×2 (09:00→09:39)
[2023-10-14] MEDS ORDERED: ESCITALOPRAM OXALATE 10 MG TAB (LEXAPRO) PO SCH (09:00)
[2023-10-14] MEDS ORDERED: AMITRIPTYLINE 10MG TABLET PO SCH (09:00)
[2023-10-14 09:21] LABS: VANCOMYCIN RANDOM 28.3 UG/ML
[2023-10-14] MEDS: MULTIVITAMINS/MINERALS THERAP 1 TAB PO SCH (09:37)
[2023-10-14] MEDS: DOCUSATE SODIUM 100MG CAPSULE PO SCH ×2 (09:39→19:43)
[2023-10-14] MEDS: THIAMINE 100 MG TAB PO SCH ×2 (09:39→19:41)
[2023-10-14] MEDS: FOLIC ACID 1MG TAB PO SCH (09:39)
[2023-10-14] MEDS: VITAMIN D 1,000 INTERNATIONAL UNITS TABLET PO SCH (09:39)
[2023-10-14] MEDS: PRAZOSIN 1 MG CAP PO SCH ×3 (09:40→19:42)
[2023-10-14 12:06] LABS: ALBUMIN 2.4 G/DL (3.2-5.2); BILIRUBIN,DIRECT 0.3 MG/DL (<0.4); BILIRUBIN,TOTAL 0.6 MG/DL (0.3-1.2); TOTAL PROTEIN 5.9 G/DL (5.7-8.2)
[2023-10-14 14:00] VITALS: BP 141/81; TEMP 97.5; O2SAT 100
[2023-10-14] MEDS ORDERED: METO1TAB7 PO (15:36)
[2023-10-14] MEDS: AMITRIPTYLINE 10MG TABLET PO SCH (19:41)
[2023-10-14] MEDS: traZODone 100 MG TAB PO SCH (19:42)
[2023-10-14] MEDS: METHADONE 10MG TAB PO SCH (19:42)
[2023-10-14] MEDS ORDERED: ARIPiprazole 2 MG TAB PO SCH (21:00)
[2023-10-14] MEDS ORDERED: traZODone 100 MG TAB PO SCH (21:00)
[2023-10-14] MEDS: VANCOMYCIN HCL 1,000 MG, VIAL MATE ADAPTER 1 EACH in D5W 250 ML IV SCH (21:17)
[2023-10-14 22:09] VITALS: BP 134/78; TEMP 98.4; O2SAT 98
[2023-10-14 22:10] VITALS: BP 134/78
[2023-10-14 23:49] VITALS: BP 118/78
[2023-10-15] VITALS (10 sets, daily range): BP systolic 112–150; BP diastolic 76–88; TEMP 97.5–98.1; O2SAT 96–99
[2023-10-15] MEDS: LORazepam 1 MG TAB PO PRN (02:15)
[2023-10-15] MEDS ORDERED: LORazepam 2 MG/ML 1ML VIAL IM STA (04:25)
[2023-10-15] MEDS: LR 1,000 ML IV SCH (04:45)
[2023-10-15] MEDS: HEPARIN SOD (PORCINE) 5000UNITS/ML 1ML VIAL/SYRINGE SC SCH ×3 (05:10→20:48)
[2023-10-15 05:36] LABS: BASO % 0.2 % (0.0-1.0); EOS % 0.2 % (0.0-3.0); HEMATOCRIT 33.9 % (42.0-52.0); HEMOGLOBIN 11.4 g/dl (13.5-17.5); LYMPH # 0.7 10^3/uL (1.5-5.0); LYMPH % 6.8 % (24.0-44.0); MEAN CORPUSCULAR HEMOGLOBIN 31.4 pg (27.0-33.0); MEAN CORPUSCULAR HGB CONC 33.6 g/dl (32.0-36.5); MEAN CORPUSCULAR VOLUME 93.4 fl (80.0-96.0); MONO # 1.1 10^3/uL (0.0-0.8); MONO % 11.5 % (2.0-8.0); NEUTROPHILS # 7.9 10^3/uL (1.5-8.5); NEUTROPHILS % 80.1 % (36.0-66.0); PLATELET COUNT, AUTOMATED 249 10^3/uL (150-450); RED BLOOD COUNT 3.63 10^6/uL (4.30-6.10); WHITE BLOOD COUNT 9.8 10^3/uL (4.0-10.0)
[2023-10-15 05:49] LABS: ERYTHROCYTE SEDIMENTATION RATE 111 mm/hr (0-15)
[2023-10-15 06:20] LABS: PROCALCITONIN 0.23 ng/ml
[2023-10-15 06:40] LABS: BLOOD UREA NITROGEN 43 MG/DL (9-23); CALCIUM LEVEL 8.9 MG/DL (8.5-10.1); CARBON DIOXIDE LEVEL 26 MMOL/L (20-31); CHLORIDE LEVEL 108 MMOL/L (98-107); CREATININE FOR GFR 0.88 MG/DL (0.70-1.30); GLOMERULAR FILTRATION RATE > 60.0 (>60); GLUCOSE, FASTING 103 MG/DL (60-100); SODIUM LEVEL 140 MMOL/L (136-145)
[2023-10-15] MEDS ORDERED: DEXTROSE 50% 50ML SYRINGE IV STA ×2 (07:31→10:08)
[2023-10-15] MEDS ORDERED: FUROSEMIDE 40MG/4ML VIAL IV STA (07:31)
[2023-10-15] MEDS ORDERED: HumuLIN R (REGULAR) INSULIN (NovoLIN R) **100U/ML** PER UNIT IV STA (07:31)
[2023-10-15 07:33] LABS: VANCOMYCIN RANDOM 15.6 UG/ML
[2023-10-15] MEDS ORDERED: PATIROMER SORBITEX CALCIUM 8.4 GM POWDER PACKET (VELTASSA) PO STA (07:34)
[2023-10-15 07:57] LABS: CPK CREATINE PHOSPHOKINASE 215 U/L (46-171)
[2023-10-15] MEDS ORDERED: CALCIUM GLUCONATE 1,000 MG in D5W MINI-BAG PLUS 100 ML IV ONE ×2 (08:00→23:00)
[2023-10-15] MEDS: FOLIC ACID 1MG TAB PO SCH (08:25)
[2023-10-15] MEDS: MULTIVITAMINS/MINERALS THERAP 1 TAB PO SCH (08:25)
[2023-10-15] MEDS: VANCOMYCIN HCL 750 MG, VIAL MATE ADAPTER 1 EACH in D5W 250 ML IV SCH ×2 (08:25→20:51)
[2023-10-15] MEDS: VITAMIN D 1,000 INTERNATIONAL UNITS TABLET PO SCH (08:25)
[2023-10-15] MEDS: SENNA 8.6 MG TAB (SENOKOT) PO SCH (08:25)
[2023-10-15] MEDS: DOCUSATE SODIUM 100MG CAPSULE PO SCH ×2 (08:25→20:49)
[2023-10-15] MEDS: levETIRAcetam 250MG TABLET (KEPPRA) PO SCH ×2 (08:26→20:48)
[2023-10-15] MEDS: METOPROLOL SUCC (TopROL XL) 50MG **XL** TAB PO SCH (08:26)
[2023-10-15] MEDS: PRAZOSIN 1 MG CAP PO SCH ×3 (08:27→20:50)
[2023-10-15] MEDS: THIAMINE 100 MG TAB PO SCH ×2 (08:27→20:51)
[2023-10-15] MEDS: VANCOMYCIN HCL 500 MG in D5W MINI-BAG PLUS 100 ML IV SCH (11:18)
[2023-10-15] MEDS: IPRATROPIUM 0.5MG/ALBUTEROL 2.5MG INH SOL UD 3ML (DUONEB) NEB SCH ×3 (12:00→20:43)
[2023-10-15 13:34] LABS: ALBUMIN 2.3 G/DL (3.2-5.2); PHOSPHORUS LEVEL 2.4 MG/DL (2.5-4.9)
[2023-10-15 15:01] LABS: ALBUMIN 2.4 G/DL (3.2-5.2); BLOOD UREA NITROGEN 34 MG/DL (9-23); CALCIUM LEVEL 9.6 MG/DL (8.5-10.1); CARBON DIOXIDE LEVEL 28 MMOL/L (20-31); CHLORIDE LEVEL 105 MMOL/L (98-107); CREATININE FOR GFR 0.89 MG/DL (0.70-1.30); GLOMERULAR FILTRATION RATE > 60.0 (>60); GLUCOSE, FASTING 107 MG/DL (60-100); PHOSPHORUS LEVEL 2.9 MG/DL (2.5-4.9); POTASSIUM SERUM 5.9 MMOL/L (3.5-5.1); SODIUM LEVEL 139 MMOL/L (136-145)
[2023-10-15] MEDS ORDERED: PATIROMER SORBITEX CALCIUM 8.4 GM POWDER PACKET (VELTASSA) PO ONE (17:00)
[2023-10-15] MEDS ORDERED: ONDANSETRON 4MG 2ML VIAL IV PRN (18:25)
[2023-10-15] MEDS: METHADONE 10MG TAB PO SCH (20:49)
[2023-10-15] MEDS: AMITRIPTYLINE 10MG TABLET PO SCH (20:49)
[2023-10-15] MEDS: traZODone 100 MG TAB PO SCH (20:50)
[2023-10-15] MEDS ORDERED: LR 1,000 ML IV ONE (22:45)
[2023-10-15] MEDS ORDERED: FUROSEMIDE 40MG/4ML VIAL IV ONE (23:00)
[2023-10-16 00:10] VITALS: BP 142/86
[2023-10-16] MEDS: VANCOMYCIN HCL 500 MG in D5W MINI-BAG PLUS 100 ML IV SCH (00:10)
[2023-10-16] MEDS: LORazepam 1 MG TAB PO PRN ×3 (00:10→01:51)
[2023-10-16] MEDS: DEXTROSE 50% 50ML SYRINGE IV STA ×2 (01:12→01:35)
[2023-10-16] MEDS: HumuLIN R (REGULAR) INSULIN (NovoLIN R) **100U/ML** PER UNIT IV STA ×2 (01:12→01:35)
[2023-10-16] MEDS ORDERED: CALCIUM GLUCONATE 1,000 MG in D5W MINI-BAG PLUS 100 ML IV ONE (02:00)
[2023-10-16 03:01] VITALS: BP 127/82; TEMP 97.7; O2SAT 95
[2023-10-16] MEDS: IPRATROPIUM 0.5MG/ALBUTEROL 2.5MG INH SOL UD 3ML (DUONEB) NEB SCH ×5 (04:00→15:36)
[2023-10-16 04:30] VITALS: BP 138/74
[2023-10-16 05:00] VITALS: BP 138/74; TEMP 97; O2SAT 100
[2023-10-16] MEDS: HEPARIN SOD (PORCINE) 5000UNITS/ML 1ML VIAL/SYRINGE SC SCH ×2 (05:44→14:00)
[2023-10-16 06:02] LABS: BASO % 0.2 % (0.0-1.0); EOS % 0.2 % (0.0-3.0); HEMATOCRIT 35.7 % (42.0-52.0); HEMOGLOBIN 11.7 g/dl (13.5-17.5); LYMPH # 0.9 10^3/uL (1.5-5.0); LYMPH % 6.9 % (24.0-44.0); MEAN CORPUSCULAR HEMOGLOBIN 30.6 pg (27.0-33.0); MEAN CORPUSCULAR HGB CONC 32.8 g/dl (32.0-36.5); MEAN CORPUSCULAR VOLUME 93.5 fl (80.0-96.0); MONO # 1.5 10^3/uL (0.0-0.8); MONO % 11.7 % (2.0-8.0); NEUTROPHILS # 10.5 10^3/uL (1.5-8.5); NEUTROPHILS % 79.9 % (36.0-66.0); PLATELET COUNT, AUTOMATED 273 10^3/uL (150-450); RED BLOOD COUNT 3.82 10^6/uL (4.30-6.10); WHITE BLOOD COUNT 13.1 10^3/uL (4.0-10.0)
[2023-10-16 06:21] LABS: BLOOD UREA NITROGEN 25 MG/DL (9-23); CALCIUM LEVEL 9.6 MG/DL (8.5-10.1); CARBON DIOXIDE LEVEL 29 MMOL/L (20-31); CHLORIDE LEVEL 102 MMOL/L (98-107); CREATININE FOR GFR 0.99 MG/DL (0.70-1.30); GLOMERULAR FILTRATION RATE > 60.0 (>60); GLUCOSE, FASTING 100 MG/DL (60-100); SODIUM LEVEL 138 MMOL/L (136-145)
[2023-10-16 08:59] VITALS: BP 129/88
[2023-10-16] MEDS: MULTIVITAMINS/MINERALS THERAP 1 TAB PO SCH (08:59)
[2023-10-16] MEDS: VITAMIN D 1,000 INTERNATIONAL UNITS TABLET PO SCH (08:59)
[2023-10-16] MEDS: THIAMINE 100 MG TAB PO SCH (08:59)
[2023-10-16] MEDS: levETIRAcetam 250MG TABLET (KEPPRA) PO SCH (08:59)
[2023-10-16] MEDS: METOPROLOL SUCC (TopROL XL) 50MG **XL** TAB PO SCH (09:00)
[2023-10-16] MEDS: SENNA 8.6 MG TAB (SENOKOT) PO SCH (09:00)
[2023-10-16] MEDS: DOCUSATE SODIUM 100MG CAPSULE PO SCH (09:00)
[2023-10-16] MEDS: PRAZOSIN 1 MG CAP PO SCH ×2 (09:00→16:00)
[2023-10-16] MEDS: FOLIC ACID 1MG TAB PO SCH (09:00)
[2023-10-16] MEDS ORDERED: ceFAZolin SOD 2 GM in IV 1 EA IV SCH (11:00)
[2023-10-16 14:00] VITALS: BP_SYST 123; BP_DIAS 77; BP_DIAS 87; TEMP 97.9; O2SAT 96
[2023-10-16 14:59] LABS: BLOOD UREA NITROGEN 22 MG/DL (9-23); CARBON DIOXIDE LEVEL 27 MMOL/L (20-31); CHLORIDE LEVEL 103 MMOL/L (98-107); CREATININE FOR GFR 0.92 MG/DL (0.70-1.30); GLOMERULAR FILTRATION RATE > 60.0 (>60); GLUCOSE, FASTING 98 MG/DL (60-100); POTASSIUM SERUM 5.1 MMOL/L (3.5-5.1); SODIUM LEVEL 137 MMOL/L (136-145)
[2023-10-16 16:22] LABS: ALBUMIN 2.2 G/DL (3.2-5.2); ALKALINE PHOSPHATASE 88 U/L (46-116); ALT/SGPT 66 U/L (7.0-40); AST/SGOT 19 U/L (<34); BILIRUBIN,DIRECT 0.2 MG/DL (<0.4); BILIRUBIN,TOTAL 0.4 MG/DL (0.3-1.2); TOTAL PROTEIN 5.7 G/DL (5.7-8.2)
[2023-10-16 16:37] LABS: PROLACTIN 6.55 NG/ML (2.1-17.7)
[2023-10-16] MEDS ORDERED: DOXY-444 PO (16:44)
== END 2023-10-16 16:30 | disposition left against medical advice (07) ==
LOC: M ED 11:03 → INTOOBSV 18:39 → M ED INP 18:39 → ENRESERV 10-14 13:29 → M MSPAV 10-14 14:00
PROVIDERS: ADMIT Student in an Organized Health Care Education/Training Program; ATTEND Student in an Organized Health Care Education/Training Program
DX: N17.9 Acute kidney failure, unspecified (principal); L03.90 Cellulitis, unspecified; E87.5 Hyperkalemia; F19.139 Other psychoactive substance abuse with withdrawal, unspecified; G40.909 Epilepsy, unspecified, not intractable, without status epilepticus; Z87.820 Personal history of traumatic brain injury; F79 Unspecified intellectual disabilities; K44.9 Diaphragmatic hernia without obstruction or gangrene; Z86.73 Personal history of transient ischemic attack (TIA), and cerebral infarction without residual deficits; Z79.899 Other long term (current) drug therapy; R74.01 Elevation of levels of liver transaminase levels
CPT/HCPCS: 36415; 71045; 73600; 80048; 80069; 80076; 80202; 80307; 82077; 82550; 82803; 83605; 84132; 84145; 84146; 85025; 85610; 85652; 86140; 87040; 87635; 93005; 94640; 96361; 96365; 96366; 96367; 96372; 96375; 96376; 99284; J0612; J0690; J1815; J1885; J1940; J2060; J2405; J3370; S0109

== ENCOUNTER → 2023-11-03 | Outpatient (REF) | payer OTHER ==
[~2023-11-03] MED LIST changes: +AMIT10TA7 PO; +DOXY-444 PO; +LEVE10003 PO; +LEXA1TAB2 PO; +METO1TAB7 PO; +RIME75TA PO; +TRAZ-257 PO
[2023-11-03 14:33] LABS: ALBUMIN 3.2 G/DL (3.2-5.2); ALKALINE PHOSPHATASE 83 U/L (46-116); ALT/SGPT 15 U/L (7.0-40); AST/SGOT < 8 U/L (<34); BILIRUBIN,TOTAL 0.3 MG/DL (0.3-1.2); BLOOD UREA NITROGEN 17 MG/DL (9-23); CARBON DIOXIDE LEVEL 26 MMOL/L (20-31); CHLORIDE LEVEL 106 MMOL/L (98-107); CHOLESTEROL LEVEL 216 MG/DL (<200); CHOLESTEROL RISK RATIO 4.84 (<5); CREATININE FOR GFR 0.87 MG/DL (0.70-1.30); GLOMERULAR FILTRATION RATE > 60.0 (>60); GLUCOSE, FASTING 82 MG/DL (60-100); HDL CHOLESTEROL 44.6 MG/DL (>40); LDL CHOLESTEROL 136.2 MG/DL (<100); NON-HDL-C 171.4 MG/DL; POTASSIUM SERUM 4.1 MMOL/L (3.5-5.1); SODIUM LEVEL 139 MMOL/L (136-145); TOTAL PROTEIN 6.6 G/DL (5.7-8.2); TRIGLYCERIDES LEVEL 176 MG/DL (<150)
== END ==
LOC: M LAB REF 13:53
PROVIDERS: ATTEND Family Medicine Addiction Medicine
DX: I10 Essential (primary) hypertension (principal)

== ENCOUNTER → 2025-04-11 | Outpatient (CLI) | payer OTHER ==
[~2025-04-11] MED LIST changes: -AMBI10TA PO; +BUPR-670 PO; -BUPR1TAB52 PO; +DOXY-440 PO; -DOXY-444 PO; +GABA-1172 PO; -GABA-282 PO; +SENN-187 PO; -SENN-83 PO; +ZOLP-533 PO
== END ==
LOC: M SOG 07:11
PROVIDERS: ATTEND Physician Assistant
DX: M79.644 Pain in right finger(s) (principal)

== ENCOUNTER 2025-07-10 11:41 | Inpatient (IN) | payer OTHER ==
[~2025-07-10] VITALS: Ht 170.2 cm; Wt 83.6 kg
[~2025-07-10 11:41] MED LIST changes: +AMIT10TA11 PO; -AMIT10TA7 PO; +LISI40TA10 PO; -LISI40TA4 PO
[2025-07-10 12:53] LABS: PLATELET COUNT, AUTOMATED 323 10^3/uL (150-450)
[2025-07-10 13:06] LABS: ETHYL ALCOHOL (ETHANOL) < 0.003 % (0.000-0.010)
[2025-07-10 13:08] LABS: SALICYLATE LEVEL < 3.0 MG/DL (<30)
[2025-07-10 13:09] LABS: ALT/SGPT 17 U/L (7.0-40); AST/SGOT 23 U/L (<34); CALCIUM LEVEL 9.3 MG/DL (8.5-10.1); CARBON DIOXIDE LEVEL 26 MMOL/L (20-31); CHLORIDE LEVEL 108 MMOL/L (98-107); CREATININE FOR GFR 0.88 MG/DL (0.70-1.30); GLOMERULAR FILTRATION RATE > 90.0 (>60); POTASSIUM SERUM 4.3 MMOL/L (3.5-5.1); SODIUM LEVEL 143 MMOL/L (136-145)
[2025-07-10 13:19] LABS: AMPHETAMINES LEVEL URINE NEGATIVE (NEGATIVE); BARBITURATES URINE NEGATIVE (NEGATIVE); BENZODIAZEPINES URINE NEGATIVE (NEGATIVE); METHADONE URINE NEGATIVE (NEGATIVE); OPIATES URINE NEGATIVE (NEGATIVE); PHENCYCLIDINE URINE NEGATIVE (NEGATIVE)
[2025-07-10 13:30] LABS: CANNABINOIDS URINE POSITIVE (NEGATIVE); COCAINE METABOLITE URINE POSITIVE (NEGATIVE)
[2025-07-10] MEDS ORDERED: HOME MED LIST COMPLETE! XX SCH (14:05)
[2025-07-10] MEDS ORDERED: ACETAMINOPHEN 325 MG TAB PO PRN (15:40)
[2025-07-10] MEDS ORDERED: MOM 30 ML SUSPENSION UDC PO PRN (15:40)
[2025-07-10] MEDS ORDERED: traZODone 50 MG TAB PO PRN (15:40)
[2025-07-10] MEDS ORDERED: MAALOX 30 ML SUSP *UDC PO PRN (15:40)
[2025-07-10] MEDS ORDERED: IBUPROFEN 400 MG TAB PO PRN (15:40)
[2025-07-10 20:50] VITALS: BP 164/104; TEMP 98; O2SAT 96
[2025-07-10] MEDS: GABAPENTIN 300 MG CAP PO SCH (21:05)
[2025-07-10] MEDS: traZODone 100 MG TAB PO SCH (21:05)
[2025-07-10 21:48] VITALS: BP 148/94
[2025-07-11 06:00] VITALS: BP 147/87; TEMP 97.8; O2SAT 100
[2025-07-11] MEDS: VITAMIN D 1,000 INTERNATIONAL UNITS TABLET PO SCH (08:57)
[2025-07-11] MEDS: ESCITALOPRAM OXALATE 10 MG TABLET PO SCH (08:57)
[2025-07-11] MEDS: amLODIPine 10 MG TAB PO SCH (08:58)
[2025-07-11] MEDS: METOPROLOL SUCC. 50 MG *XL* TAB PO SCH (08:58)
[2025-07-11 17:05] VITALS: BP 149/75; TEMP 97.6; O2SAT 99
[2025-07-11 21:35] VITALS: BP 156/78; TEMP 97; O2SAT 98
[2025-07-12 06:26] VITALS: BP 91/61; TEMP 97.2; O2SAT 96
[2025-07-12 09:12] VITALS: BP 132/87
[2025-07-12 15:09] VITALS: BP 134/75; TEMP 97.9; O2SAT 95
[2025-07-12] MEDS: QUEtiapine FUMARATE 50MG TAB PO SCH (20:41)
[2025-07-13 06:29] VITALS: BP 138/84; TEMP 97.3; O2SAT 97
[2025-07-13 08:43] VITALS: BP 136/94
[2025-07-13] MEDS ORDERED: QUET100T2 PO (09:48)
== END 2025-07-13 11:08 | disposition home or self-care (01) | DRG 754 ==
LOC: M ED 11:41 → M ED INP 15:39 → M PSY 20:21
PROVIDERS: ADMIT General Practice; ATTEND General Practice
DX: F32.9 Major depressive disorder, single episode, unspecified (principal); F41.9 Anxiety disorder, unspecified; R45.851 Suicidal ideations; R45.850 Homicidal ideations; G47.00 Insomnia, unspecified; Z87.820 Personal history of traumatic brain injury; I10 Essential (primary) hypertension; F43.10 Post-traumatic stress disorder, unspecified; Z59.00 Homelessness unspecified; F14.90 Cocaine use, unspecified, uncomplicated; G40.909 Epilepsy, unspecified, not intractable, without status epilepticus; F17.200 Nicotine dependence, unspecified, uncomplicated; F12.90 Cannabis use, unspecified, uncomplicated; Z79.899 Other long term (current) drug therapy

== ENCOUNTER 2025-07-21 17:35 | Inpatient (IN) | payer OTHER ==
[~2025-07-21] VITALS: Ht 170.2 cm; Wt 81.0 kg
[~2025-07-21 17:35] MED LIST changes: +QUET100T2 PO
[2025-07-21 18:30] LABS: BASO # 0.0 10^3/uL (0.0-0.2); BASO % 0.3 % (0.0-1.0); EOS # 0.0 10^3/uL (0.0-0.5); EOS % 0.2 % (0.0-3.0); LYMPH # 1.1 10^3/uL (1.5-5.0); LYMPH % 9.4 % (24.0-44.0); MONO # 1.3 10^3/uL (0.0-0.8); MONO % 10.6 % (2.0-8.0); NEUTROPHILS # 9.4 10^3/uL (1.5-8.5); NEUTROPHILS % 79.0 % (36.0-66.0); PLATELET COUNT, AUTOMATED 320 10^3/uL (150-450)
[2025-07-21] MEDS: NS (Normal Saline) 0.9% 1,000 ML IV ONE ×3 (18:46→22:54)
[2025-07-21 18:55] LABS: ETHYL ALCOHOL (ETHANOL) 0.004 % (0.000-0.010)
[2025-07-21 18:57] LABS: SALICYLATE LEVEL < 3.0 MG/DL (<30)
[2025-07-21 19:13] LABS: ALT/SGPT 106 U/L (7.0-40); AST/SGOT 280 U/L (<34); CALCIUM LEVEL 9.5 MG/DL (8.5-10.1); CARBON DIOXIDE LEVEL 20 MMOL/L (20-31); CHLORIDE LEVEL 104 MMOL/L (98-107); CPK CREATINE PHOSPHOKINASE 9064 U/L (46-171); CREATININE FOR GFR 9.24 MG/DL (0.70-1.30); GLOMERULAR FILTRATION RATE 6.7 (>60); POTASSIUM SERUM 4.5 MMOL/L (3.5-5.1); SODIUM LEVEL 143 MMOL/L (136-145)
[2025-07-21 19:34] LABS: MAGNESIUM LEVEL 2.6 MG/DL (1.8-2.4)
[2025-07-21 21:59] LABS: KETONE, URINE AUTO RFX TRACE mg/dL (NEGATIVE); LEUKOCYTE ESTERASE UR AUTO RFX NEGATIVE (NEGATIVE); MUCUS, URINE RFX SMALL (NEGATIVE); NITRITE, URINE AUTO RFX NEGATIVE (NEGATIVE); RBC, URINE AUTO RFX TNTC /HPF (0-3); SQUAM EPITHELIAL CELL UR AURFX 0 /HPF (0-6)
[2025-07-21 22:00] LABS: WBC, URINE AUTO RFX 27 /HPF (0-3)
[2025-07-21 22:14] LABS: BARBITURATES URINE NEGATIVE (NEGATIVE)
[2025-07-21 22:15] LABS: BENZODIAZEPINES URINE NEGATIVE (NEGATIVE); METHADONE URINE NEGATIVE (NEGATIVE); OPIATES URINE NEGATIVE (NEGATIVE); PHENCYCLIDINE URINE NEGATIVE (NEGATIVE)
[2025-07-21 22:17] LABS: AMPHETAMINES LEVEL URINE POSITIVE (NEGATIVE); CANNABINOIDS URINE POSITIVE (NEGATIVE); COCAINE METABOLITE URINE POSITIVE (NEGATIVE)
[2025-07-21] MEDS ORDERED: MAALOX 30 ML SUSP *UDC PO PRN (23:05)
[2025-07-21] MEDS ORDERED: MOM 30 ML SUSPENSION UDC PO PRN (23:05)
[2025-07-22] MEDS: ACETAMINOPHEN *IV* 1,000 MG in IV 1 EA IV ONE (00:02)
[2025-07-22] MEDS ORDERED: QUET100T2 PO (00:53)
[2025-07-22] MEDS ORDERED: HOME MED LIST COMPLETE! XX SCH (00:55)
[2025-07-22 03:20] VITALS: BP 112/61; TEMP 97.9; O2SAT 95
[2025-07-22 06:20] LABS: PLATELET COUNT, AUTOMATED 241 10^3/uL (150-450)
[2025-07-22] MEDS: NS (Normal Saline) 0.9% 1,000 ML IV SCH (06:38)
[2025-07-22 06:47] LABS: CALCIUM LEVEL 8.6 MG/DL (8.5-10.1); CARBON DIOXIDE LEVEL 23.0 MMOL/L (20-31); CHLORIDE LEVEL 111.0 MMOL/L (98-107); CREATININE FOR GFR 4.34 MG/DL (0.70-1.30); GLOMERULAR FILTRATION RATE 16.6 (>60); MAGNESIUM LEVEL 2.6 MG/DL (1.8-2.4); POTASSIUM SERUM 4.1 MMOL/L (3.5-5.1); SODIUM LEVEL 143.0 MMOL/L (136-145)
[2025-07-22] MEDS: ESCITALOPRAM OXALATE 10 MG TABLET PO SCH (08:54)
[2025-07-22] MEDS: HEPARIN SOD 5000 UNITS/ML 1 ML VIAL/SYRINGE SC SCH (08:54)
[2025-07-22] MEDS: DOCUSATE SODIUM 100 MG CAPSULE PO SCH (08:54)
[2025-07-22] MEDS: GABAPENTIN 300 MG CAP PO SCH (08:54)
[2025-07-22] MEDS: METOPROLOL SUCC. 50 MG *XL* TAB PO SCH (09:30)
[2025-07-22 12:00] VITALS: BP 107/61; TEMP 97.7; O2SAT 92
[2025-07-22] MEDS: SODIUM BICARBONATE 50 MEQ in NS 0.45% 1,000 ML IV SCH (12:08)
[2025-07-22 20:00] VITALS: BP 124/82; TEMP 98.1; O2SAT 91
[2025-07-22] MEDS: ACETAMINOPHEN 325 MG TAB PO PRN (21:26)
[2025-07-23 03:51] VITALS: BP 119/85; TEMP 97.7; O2SAT 94
[2025-07-23 06:36] LABS: PLATELET COUNT, AUTOMATED 175 10^3/uL (150-450)
[2025-07-23 07:08] LABS: ALT/SGPT 94 U/L (7.0-40); AST/SGOT 144 U/L (<34); CALCIUM LEVEL 8.0 MG/DL (8.5-10.1); CARBON DIOXIDE LEVEL 30 MMOL/L (20-31); CHLORIDE LEVEL 112 MMOL/L (98-107); CREATININE FOR GFR 1.02 MG/DL (0.70-1.30); GLOMERULAR FILTRATION RATE > 90.0 (>60); POTASSIUM SERUM 4.2 MMOL/L (3.5-5.1); SODIUM LEVEL 148 MMOL/L (136-145)
[2025-07-23 07:18] LABS: CPK CREATINE PHOSPHOKINASE 2203 U/L (46-171)
[2025-07-23 07:31] VITALS: O2SAT 97
[2025-07-23 09:38] VITALS: BP 125/85; TEMP 98.2; O2SAT 94
[2025-07-23 12:13] VITALS: BP 132/83; TEMP 98.4; O2SAT 93
[2025-07-23 19:44] VITALS: BP 135/83; TEMP 98.2; O2SAT 95
[2025-07-24 05:15] VITALS: BP 160/94; TEMP 98.1; O2SAT 97
[2025-07-24 07:08] LABS: PLATELET COUNT, AUTOMATED 173 10^3/uL (150-450)
[2025-07-24 08:15] LABS: CPK CREATINE PHOSPHOKINASE 766 U/L (46-171)
[2025-07-24 08:20] LABS: ALT/SGPT 83 U/L (7.0-40); AST/SGOT 85 U/L (<34); CALCIUM LEVEL 8.6 MG/DL (8.5-10.1); CARBON DIOXIDE LEVEL 30 MMOL/L (20-31); CHLORIDE LEVEL 107 MMOL/L (98-107); CREATININE FOR GFR 0.77 MG/DL (0.70-1.30); GLOMERULAR FILTRATION RATE > 90.0 (>60); POTASSIUM SERUM 4.2 MMOL/L (3.5-5.1); SODIUM LEVEL 144 MMOL/L (136-145)
[2025-07-24 08:22] VITALS: BP 156/88
== END 2025-07-24 13:11 | disposition home or self-care (01) | DRG 351 ==
LOC: M ED 17:35 → EDBD 17:35 → M ED INP 23:04 → M MSPAV 07-22 03:18
PROVIDERS: ADMIT Student in an Organized Health Care Education/Training Program; ATTEND Family Medicine
DX: M62.82 Rhabdomyolysis (principal); N17.9 Acute kidney failure, unspecified; I95.9 Hypotension, unspecified; F12.90 Cannabis use, unspecified, uncomplicated; F15.90 Other stimulant use, unspecified, uncomplicated; F14.90 Cocaine use, unspecified, uncomplicated; F10.10 Alcohol abuse, uncomplicated; D72.829 Elevated white blood cell count, unspecified; R74.01 Elevation of levels of liver transaminase levels; G40.909 Epilepsy, unspecified, not intractable, without status epilepticus; I12.9 Hypertensive chronic kidney disease with stage 1 through stage 4 chronic kidney disease, or unspecified chronic kidney disease; F17.200 Nicotine dependence, unspecified, uncomplicated; F32.A Depression, unspecified; F41.9 Anxiety disorder, unspecified; Z87.820 Personal history of traumatic brain injury; N18.9 Chronic kidney disease, unspecified; Z79.899 Other long term (current) drug therapy

== ENCOUNTER → 2025-09-11 | Outpatient (CLI) | payer OTHER ==
[2025-09-11 15:03] LABS: BASO # 0.1 10^3/uL (0.0-0.2); BASO % 0.7 % (0.0-1.0); EOS # 0.3 10^3/uL (0.0-0.5); EOS % 3.8 % (0.0-3.0); LYMPH # 2.1 10^3/uL (1.5-5.0); LYMPH % 29.2 % (24.0-44.0); MONO # 0.5 10^3/uL (0.0-0.8); MONO % 7.0 % (2.0-8.0); NEUTROPHILS # 4.3 10^3/uL (1.5-8.5); NEUTROPHILS % 59.0 % (36.0-66.0); PLATELET COUNT, AUTOMATED 293 10^3/uL (150-450)
[2025-09-11 15:09] LABS: CALCIUM LEVEL 9.6 MG/DL (8.5-10.1); CARBON DIOXIDE LEVEL 30 MMOL/L (20-31); CHLORIDE LEVEL 105 MMOL/L (98-107); CPK CREATINE PHOSPHOKINASE 35 U/L (46-171); CREATININE FOR GFR 0.95 MG/DL (0.70-1.30); GLOMERULAR FILTRATION RATE > 90.0 (>60); POTASSIUM SERUM 4.6 MMOL/L (3.5-5.1); SODIUM LEVEL 143 MMOL/L (136-145)
== END ==
LOC: M WUC 10:59
PROVIDERS: ATTEND Family Medicine Addiction Medicine
DX: M62.82 Rhabdomyolysis (principal)